=== PATIENT | female | born 1950 | race Caucasian/White ===

== ENCOUNTER 2019-01-27 11:58 | Observation (INO) | payer OTHER ==
--- OUTSIDE RECORDS SUMMARY | 2019-01-27 12:02 | XMS REPORT | Continuity of Care Document ---
:1950 Author Organization Interface Problems Problem Status Onset Classification Date Comments Source Date Reported LOCALIZATION-RE Active 08/06/20 [place] LATED (FOCAL) 18 [facility] (PARTIAL[facility] S [facility] G40.219 - Active 07/08/20 [facility] LOCAL-REL 18 [facility] EPI W CMPLX P 781.3 - LACK OF Active 11/01/19 [facility] COORDIN 15 [facility] Memory loss Resolved Problem 11/29/2018 [facility] Seizure Resolved Problem 11/29/2018 [facility] Seizure Active Problem 11/29/2018 [facility] precautions Neuro, [facility] Tremor Resolved Problem 11/29/2018 [facility] Medications Medication Details Route Status Patient Ordering Order Source Instructions Provider Date lamotrigine 200 200 mg=1 Active [facility] Oral Tablet tab, PO, 019 [facility] [Lamictal] BID, 0 Refill(s) propranolol 10 mg PO, BID, 0 Active [facility] oral tablet Refill(s) 019 [facility] ibandronic acid 150 mg=1 Active [facility] 150 MG Oral tab, PO, 019 [facility] Tablet [Boniva] qMonth, 0 Refill(s) Cholestyramine 4 gm, PO, Active [facility] Resin BID, 0 019 [facility] Refill(s) Allergies, Adverse Reactions, Alerts Substance Category Reaction Severity Reaction Status Date Comments Source type Reported Immunizations Immunization Date Given Site Status Last Updated Comments Source Results Order Results Value Reference Date Interpretation Comments Source Name Range Brain wo Brain wo EXAM: MRI BRAIN WITHOUT CONTRAST 09/21 - [facility] contrast contrast /2017 - [place] [facility] MRI DATE: 09/21/2018 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 TECHNIQUE: Multiplanar, multisequence MRI of the brain without contrast. High-resolution imaging was also obtained. IV contrast: None. FINDINGS: No restricted diffusion. No prior intracranial hemorrhage or mass effect. Again noted is T2 hyperintense signal and mild expansion in the region of the left amygdala and hippocampus. No new parenchymal signal abnormalities in the remainder of the brain parenchyma. Ventricles are normal in size. Basal cisterns are patent. The major intracranial flow voids are preserved. The orbits, paranasal sinuses and mastoids are unremarkable. 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 Differential considerations include low-grade neoplasm and cortical dysplasia. Vital Signs Vital Sign Value Date Comments Source BMI Calculated 17.58 11/26/2018 [facility] Height 170.18 cm 11/26/2018 [facility] Weight 50.909 11/26/2018 [facility] Temperature Oral (F) 97.9 F 11/26/2018 [facility] Heart Rate 80 11/26/2018 [facility] Systolic (mm Hg) 122 11/26/2018 [facility] Diastolic (mm Hg) 71 11/26/2018 [facility] Encounters Location Location Encounter Encounter Reason Attending ADM DC Status Source Details Type Number For Provider Date Date Visit [facility] Diag [id number] [facility] 11/09 11/10 [facility] [id number] CHIR[facility] 11/26 [facility] [id number] Chirag 11/26 11/27 [facility] Procedures Procedure Code Date Perfomer Comments Source Appendectomy [id number] [facility]
--- OUTSIDE RECORDS SUMMARY | 2019-01-27 12:02 | XMS REPORT | Summary of Care ---
:1950 Author Organization [facility] Address [address] [place] [address], [address] [place] [address]- Encounter [facility] Puneet(FIN) [id number] Date(s): 11/26/18 - 11/26/18 [facility] [address], [address] [place] [phone] Discharge Disposition: Home or Self Care Attending Physician: Chirag Pantoja MD Referring Physician: Antwon Archibald MD Vital Signs Most recent to oldest [Reference Range]: 1 Height 170.18 cm (11/26/18 12:30 PM) Temperature Oral [96.4-99.1 DegF] 97.9 DegF (11/26/18 12:30 PM) Blood Pressure [90-140/60-90 mmHg] 122/71 mmHg (11/26/18 12:30 PM) Peripheral Pulse Rate [60-100 bpm] 80 bpm (11/26/18 12:30 PM) Weight 50.909 kg (11/26/18 12:30 PM) Body Mass Index 17.58 m2 (11/26/18 12:30 PM) Problem List Condition Effective Dates Status Health Status Informant Memory loss(Confirmed) Resolved Seizure(Confirmed) Resolved Seizure precautions(Confirmed) Active Tremor(Confirmed) Resolved Allergies, Adverse Reactions, Alerts Substance Reaction Severity Status NKDA Active Medications Boniva 150 mg oral tablet 150 mg=1 tab, PO, qMonth, 0 Refill(s) Start Date: 11/26/18 Status: Orderedcholestyramine 4 gm, PO, BID, 0 Refill(s) Start Date: 11/26/18 Status: OrderedLaMICtal 200 mg oral tablet 200 mg=1 tab, PO, BID, 0 Refill(s) Start Date: 11/26/18 Status: Orderedpropranolol 10 mg oral tablet PO, BID, 0 Refill(s) Start Date: 11/26/18 Status: Ordered Results No data available for this section Immunizations No data available for this section Procedures Procedure Date Related Diagnosis Body Site Status Appendectomy Completed Social History Social History Type Response Smoking Status Never smoker; Exposure to Tobacco Smoke None; Cigarette Smoking Last 365 Days No; Reg Smoking Cessation Counseling No entered on: 11/26/18 Assessment and Plan No data available for this section
[2019-01-27 13:25] LABS: Absolute Lymphocytes (CBC) 1.2 K/uL (0.7-4.9); Absolute Monocytes 0.4 K/uL (0.1-1.3); Absolute Neutrophil 3.7 K/uL (1.8-8.0); Basophils % 0.6 % (0-1.3); Eosinophils % 3.1 % (0-4.4); Hematocrit 39.9 % (36.0-45.0); Lymphocytes % 22.4 % (15.3-44.8); MPV 7.5 fL (7.6-11.3); Monocytes % 6.8 % (3.3-12.3); RBC Red Blood Cell Count 4.79 M/uL (3.86-4.86)
--- NOTE | 2019-01-27 13:43 | RAD REPORT ---
EXAM DESCRIPTION: RAD - Chest Single View - 01/27/2019 1:34 pm CLINICAL HISTORY: CHEST PAIN Chest pain. COMPARISON: Chest Pa And Lat (2 Views) dated 05/26/2018; CHEST PA AND LAT 2 VIEW dated 02/23/2014; CHEST PA AND LAT 2 VIEW dated 11/01/2010 FINDINGS: Portable technique limits examination quality. Interstitial markings are prominent bilaterally which may indicate interstitial pulmonary edema or in terstitial pneumonitis. No focal infiltrate typical of pneumonia seen. The heart is mildly prominent size. Cholecystectomy clips.
[2019-01-27 13:44] LABS: Sodium Level 143 mmol/L (136-145)
[2019-01-27 13:45] LABS: BUN Blood Urea Nitrogen 15 mg/dL (7-18); Bicarbonate 31 mmol/L (21-32); Glucose Level 84 mg/dL (74-106); NT PRO-BNP 74 pg/mL (<125); Potassium 3.9 mmol/L (3.5-5.1); Troponin (Emerg Dept Use Only) < 0.02 ng/mL (0.0-0.045)
--- NOTE | 2019-01-27 15:10 | ER ---
Nurse's Notes [facility] Name: Paola Graham Age: 68 yrs Sex: Female : 1950 Arrival Date: 01/27/2019 Time: 12:01 Bed 7 Private MD: Diagnosis: Chest pain, unspecified;Dyspnea, unspecified Presentation: 01/27 12:08 Presenting complaint: Patient states: she has been having chest pressure for over a sv month and went to see Dr Francis and was placed on a Holter monitor with her power manager. Pt reports having increasing chest pressure and SOB and feeling like she cannot catch her breath. Transition of care: patient was not received from another setting of care. Onset of symptoms is unknown. Care prior to arrival: None. 12:08 Method Of Arrival: Wheelchair sv 12:08 Acuity: PERRY 3 sv 15:37 Risk Assessment: Do you want to hurt yourself or someone else? Patient reports no iw desire to harm self or others. Initial Sepsis Screen: Does the patient meet any 2 criteria? No. Patient's initial sepsis screen is negative. Does the patient have a suspected source of infection? No. Patient's initial sepsis screen is negative. Historical: - Allergies: 12:09 Phenobarbital (rash); sv - Home Meds: 15:15 Boniva 150 mg Oral tab 1 tab once moly [Active]; esomeprazole magnesium 40 mg Oral cpDR iw 1 cap once daily [Active]; Lamictal 200 mg Oral tab 1 tab once daily [Active]; propranolol 10 mg Oral tab 2 tabs twice a day [Active]; - PMHx: 12:09 Seizures; sv - PSHx: 12:09 Cholecystectomy; sv 12:10 Tubal ligation; sv - Immunization history:: Adult Immunizations up to date. - Social history:: Smoking status: Patient/guardian denies using tobacco. - Ebola Screening: : No symptoms or risks identified at this time. - Family history:: not pertinent. - Hospitalizations: : No recent hospitalization is reported. Screenin:23 Abuse screen: Denies threats or abuse. Denies injuries from another. Nutritional iw screening: No deficits noted. Tuberculosis screening: No symptoms or risk factors identified. Fall Risk IV access (20 points). Assessment: 12:50 General: Appears in no apparent distress. Behavior is calm, cooperative. Pain: iw Complains of pain in anterior aspect of left upper chest Pain does not radiate. Pain began one month ago, worse today. Neuro: Level of Consciousness is awake, alert, obeys commands, Moves all extremities. Cardiovascular: Reports chest pain, shortness of breath, Heart tones S1 S2 present Capillary refill < 3 seconds in bilateral fingers Patient's skin is warm and dry. Respiratory: Respiratory effort is even, unlabored, Respiratory pattern is regular, symmetrical, Breath sounds are clear bilaterally. GI: Abdomen is flat, non-distended, Bowel sounds present X 4 quads. Derm: Skin is intact, is healthy with good turgor, is fragile. 13:23 Reassessment: Patient appears in no apparent distress at this time. Patient and/or iw family updated on plan of care and expected duration. Pain level reassessed. Patient is alert, oriented x 3, equal unlabored respirations, skin warm/dry/pink. Vital Signs: 12:10 BP 116 / 73; Pulse 94; Resp 20; Temp 98.7; Pulse Ox 99% ; Weight 50.8 kg; Height 5 ft. sv 7 in. (170.18 cm); Pain 8/10; 14:03 BP 112 / 71; Pulse 83; Resp 16 S; Pulse Ox 98% on R/A; Pain 6/10; iw 12:10 Body Mass Index 17.54 (50.80 kg, 170.18 cm) sv Vitals: 14:03 Cardiac Rhythm Assessment Regular. iw ED Course: 12:01 Patient arrived in ED. tw3 12:09 Triage completed. sv 12:10 Arm band placed on. sv 12:13 EKG done, by central service technician. reviewed by Alvino Gillette MD. sm3 12:41 Alvino Gillette MD is Attending Physician. rn 13:00 Kala Tobar, CECILY is Primary Nurse. iw 13:23 Inserted saline lock: 22 gauge in right forearm, using aseptic technique. Blood iw collected. IV inserted by Lauri nurse receptionist student. 13:29 X-ray completed. Portable x-ray completed in exam room. Patient tolerated procedure sw well. 13:32 XRAY Chest (1 view) In Process Unspecified. EDMS 15:09 Leo Rivers MD is Hospitalizing Provider. rn 15:37 No provider procedures requiring assistance completed. Patient admitted, IV remains in iw place. Patient maintains SpO2 saturation greater than 95% on room air. 15:38 Patient has correct armband on for positive identification. groundwater monitoring technician on. Pulse iw ox on. NIBP on. Administered Medications: No medications were administered Outcome: 15:09 Decision to Hospitalize by Provider. rn 15:46 Admitted to Med/surg accompanied by nurse, room 202, with chart. sg 15:46 Condition: stable 15:46 Instructed on the need for admit, safety practices, Demonstrated understanding of instructions. 15:55 Patient left the ED. sg Signatures: Dispatcher [employer] EDMS Gina Lan, RN Osvaldo Forrester RN RN sg Williams, Irene, RN RN iw Nieto, Roman, MD MD rn Warren, Shannon sw Wade, Denise tw3 Serena Marshall 3
--- NOTE | 2019-01-27 15:10 | EDPHYS ---
Physician Documentation [facility] Name: Paola Graham Age: 68 yrs Sex: Female : 1950 Arrival Date: 01/27/2019 Time: 12:01 Bed 7 Private MD: ED Physician Alvino Gillette HPI: 01/27 13:39 This 68 yrs old Female presents to ER via Wheelchair with complaints of Chest rn Pain. 13:39 The patient or guardian reports chest pain that is located primarily in the substernal rn area. Onset: 1 month(s) ago. The pain does not radiate. Associated signs and symptoms: Pertinent positives: palpitations, shortness of breath, Pertinent negatives: cough, diaphoresis, dizziness, lower extremity swelling, lightheadedness. The chest pain is described as a heaviness. Duration: The patient or guardian reports multiple episodes, that are intermittent. Modifying factors: The symptoms are alleviated by nothing. the symptoms are aggravated by exertion. Severity of pain: At its worst the pain was mild in the emergency department the pain is unchanged. The patient has experienced similar episodes in the past. The patient has been recently seen by a physician:. Historical: - Allergies: 12:09 Phenobarbital (rash); sv - Home Meds: 15:15 Boniva 150 mg Oral tab 1 tab once moly [Active]; esomeprazole magnesium 40 mg Oral cpDR iw 1 cap once daily [Active]; Lamictal 200 mg Oral tab 1 tab once daily [Active]; propranolol 10 mg Oral tab 2 tabs twice a day [Active]; - PMHx: 12:09 Seizures; sv - PSHx: 12:09 Cholecystectomy; sv 12:10 Tubal ligation; sv - Immunization history:: Adult Immunizations up to date. - Social history:: Smoking status: Patient/guardian denies using tobacco. - Ebola Screening: : No symptoms or risks identified at this time. - Family history:: not pertinent. - Hospitalizations: : No recent hospitalization is reported. ROS: 13:39 Constitutional: Negative for fever, chills, and weight loss, Eyes: Negative for injury, rn pain, redness, and discharge, Cardiovascular: + chest pain and palpitation Respiratory: + sob, negative for cough Abdomen/GI: Negative for abdominal pain, nausea, vomiting, diarrhea, and constipation, MS/Extremity: Negative for injury and deformity, Skin: Negative for injury, rash, and discoloration, Neuro: + generalized weakness Exam: 13:39 Constitutional: This is a well developed, well nourished patient who is awake, alert, rn and in no acute distress. Head/Face: Normocephalic, atraumatic. Eyes: Pupils equal round and reactive to light, extra-ocular motions intact. Cardiovascular: Regular rate and rhythm, No pulse deficits. Respiratory: Clear and equal breath sounds bilaterally Abdomen/GI: soft, non-tender MS/ Extremity: Pulses equal, no cyanosis. Neurovascular intact. Full, normal range of motion. Equal circumference. Neuro: Awake and alert, GCS 15, oriented to person, place, time, and situation. Cranial nerves II-XII grossly intact. Motor strength 5/5 in all extremities. Sensory grossly intact. Cerebellar exam normal. Normal gait. Vital Signs: 12:10 BP 116 / 73; Pulse 94; Resp 20; Temp 98.7; Pulse Ox 99% ; Weight 50.8 kg; Height 5 ft. sv 7 in. (170.18 cm); Pain 8/10; 14:03 BP 112 / 71; Pulse 83; Resp 16 S; Pulse Ox 98% on R/A; Pain 6/10; iw 12:10 Body Mass Index 17.54 (50.80 kg, 170.18 cm) sv MDM: 12:41 Patient medically screened. rn 15:08 Differential diagnosis: acute myocardial infarction, acute pericarditis, anxiety, rn coronary artery disease chest wall pain, congestive heart failure costochondritis, gastroesophageal reflux disease (GERD), pericarditis, pleurisy, pneumonia, pneumothorax, stable angina. Data reviewed: vital signs, nurses notes, lab test result(s), EKG, radiologic studies, plain films, and as a result, I will admit patient. Counseling: I had a detailed discussion with the patient and/or guardian regarding: the historical points, exam findings, and any diagnostic results supporting the discharge/admit diagnosis, lab results, radiology results, the need for further work-up and treatment in the hospital. Response to treatment: the patient's symptoms have mildly improved after treatment, and as a result, I will admit patient. Admission orders: after a detailed discussion of the patient's condition and case, the admit orders are written by me. 04/11 12:53 Order name: Basic Metabolic Panel; Complete Time: 13:48 rn 01/27 12:53 Order name: CBC with Diff; Complete Time: 13:48 rn 01/27 12:11 Order name: EKG; Complete Time: 12:11 sv 01/27 12:53 Order name: NT PRO-BNP; Complete Time: 13:48 rn 01/27 12:53 Order name: Troponin (emerg Dept Use Only); Complete Time: 13:48 rn 01/27 12:53 Order name: XRAY Chest (1 view); Complete Time: 13:48 rn 01/27 12:11 Order name: EKG - Nurse/Tech; Complete Time: 12:11 sv 01/27 12:53 Order name: Cardiac monitoring; Complete Time: 13:15 rn 01/27 12:53 Order name: IV Saline Lock; Complete Time: 13:15 rn 01/27 12:53 Order name: Labs collected and sent; Complete Time: 13:15 rn 01/27 12:53 Order name: O2 Per Protocol; Complete Time: 13:15 rn 01/27 12:53 Order name: O2 Sat Monitoring; Complete Time: 13:32 rn Administered Medications: No medications were administered Disposition: 01/27/19 15:09 Hospitalization ordered by Leo Rivers for Observation. Preliminary diagnosis are Chest pain, unspecified, Dyspnea, unspecified. - Bed requested for Telemetry/MedSurg (observation). - Status is Observation. sg - Condition is Stable. - Problem is an ongoing problem. - Symptoms have improved. UTI on Admission? No Signatures: Dispatcher [employer] [facility] Gina Lan RN RN sv Woody, Diana, RN RN dw Gay, Steven, CECILY TONY sg Kala Tobar, RN CECILY iw Alvino Gillette MD MD managing attorney: (The following items were deleted from the chart) 15:22 15:09 Hospitalization Ordered by Leo Rivers MD for Observation. Preliminary diagnosis dw is Chest pain, unspecified; Dyspnea, unspecified. Bed requested for Telemetry/MedSurg (observation). Status is Observation. Condition is Stable. Problem is an ongoing problem. Symptoms have improved. UTI on Admission? No. rn 15:55 15:22 01/27/2019 15:09 Hospitalization Ordered by Leo Rivers MD for Observation. sg Preliminary diagnosis is Chest pain, unspecified; Dyspnea, unspecified. Bed requested for Telemetry/MedSurg (observation). Status is Observation. Condition is Stable. Problem is an ongoing problem. Symptoms have improved. UTI on Admission? No. dw
[2019-01-27] MEDS ORDERED: GLUCAGON 1 MG/VIAL IM PRN (16:09)
[2019-01-27] MEDS ORDERED: D50W 25 GM/50 ML SYRINGE IV PRN (16:09)
[2019-01-27] MEDS ORDERED: INSULIN -REGULAR HUMAN 50 UNIT/0.5 ML ML SQ SCH (16:30)
[2019-01-27] MEDS ORDERED: Levofloxacin500mg IV 500 MG/100 ML BAG IV SCH (17:00)
[2019-01-27] MEDS ORDERED: METHYLPREDNISOLONE 40 MG INJ IV SCH (17:00)
[2019-01-27] MEDS ORDERED: ALBUTEROL 2.5 MG/3 ML NEB SOL NEB SCH (17:00)
--- NOTE | 2019-01-27 17:15 | EKG ---
Test Date: 2019-01-27 Test Time: 12:09:58 Actuarial Consultant: JAIME MEASUREMENT RESULTS: Intervals: Rate: 92 OK: 274 QRSD: 88 QT: 352 QTc: 435 [place]: P: 74 OK: 274 QRS: 66 T: 69 INTERPRETIVE STATEMENTS: Sinus rhythm with 1st degree AV block Otherwise normal ECG Compared to ECG 03/21/2013 13:20:57 First degree AV block now present Electronically Signed On 01-27-19 17:13:25 CDT by Jerome Golden
--- NOTE | 2019-01-27 17:58 | P.HP ---
Certification for Inpatient Patient admitted to: Observation With expected LOS: <2 Midnights Practitioner: I am a practitioner with admitting privileges, knowledge of patient current condition, hospital course, and medical plan of care. Services: Services provided to patient in accordance with Admission requirements found in Title 42 Section 412.3 of the Code of Federal Regulations Patient History Date of Service: 01/27/19 Reason for admission: Chest pain on exertion History of Present Illness: This is a 68 yr old female with a PMH of seizures disorder admitted for chest pain on exertion. Per patient, she has been having exertional chest pain for the past 1 month. She experiences left sided chest pressure that is worse with any exertion. She did have a holter monitor with normal results. Denies any sob, nausea/vomiting, dizziness, [place] R[place], vision changes, speech changes, or syncopal /presyncopal episodes. She called her PCP office for an appointment but due to unavailability of PCP, she was then referred to the Emergency room. In the ED, her symptoms were unchanged. Her Vital signs were stable. Her EKG was without any acute abnormalities and troponin was negative x 1. Her labs were unremarkable and chest xray was without any acute abnormalities. At the time of my exam, she was AAOx3, in no acute distress and was hemodynamically stable. She was admitted for further evaluation. Allergies phenobarbital Allergy (Mild, Verified 01/27/19 18:27) Rash Home Medications: Cholestyramine (with Sugar) [Cholestyramine Packet] 4 gm PO DAILY 01/27/19 Lamotrigine [Lamotrigine ER] 200 mg PO BID 01/27/19 Propranolol HCl 20 mg PO DAILY 01/27/19 Propranolol HCl 30 mg PO BEDTIME 01/27/19 - Past Medical/Surgical History -: Seizure disorder - Family History Father -: Heart disease - Social History Smoking Status: Never smoker Alcohol use: No CD- Drugs: No Review of Systems 10-point ROS is otherwise unremarkable Physical Examination - Vital Signs Temperature: 98.7 F Blood Pressure: 112/71 Pulse: 83 Respirations: 16 - Physical Exam General: Alert, In no apparent distress, Oriented x3 HEENT: Atraumatic, PERRLA, Mucous membr. moist/pink, EOMI, Sclerae nonicteric Neck: Supple, 2+ carotid pulse no bruit, No LAD, Without JVD or thyroid abnormality Respiratory: Clear to auscultation bilaterally, Normal air movement Cardiovascular: Regular rate/rhythm, Normal S1 S2 Gastrointestinal: Normal bowel sounds, No tenderness Musculoskeletal: No tenderness Integumentary: No rashes Neurological: Normal gait, Normal speech, Normal strength at 5/5 x4 extr, Normal tone, Normal affect Lymphatics: No axilla or inguinal lymphadenopathy - Studies Laboratory Data (last 24 hrs) 01/27/19 13:10: WBC 5.5, Hgb 12.9, Hct 39.9, Plt Count 265 01/27/19 13:10: Sodium 143, Potassium 3.9, BUN 15, Creatinine 0.74, Glucose 84 Assessment and Plan - Problems (Diagnosis) (1) Exertional angina Current Visit: Yes Status: Acute (2) Seizure disorder Current Visit: No Status: Chronic - Plan Admit patient to the floor with tele Cardiology consult Trend troponin Chest pain guidelines ECHO ordered Stress test per cardiology Discharge Plan: Home - Advance Directives Does patient have a Living Will: No Does patient have a Durable POA for Healthcare: No
[2019-01-27 18:18] VITALS: BMI 16.1
--- NOTE | 2019-01-27 23:03 | CON ---
History Of Present Illness: A 68-year-old woman with chief complaint of chest pressure. The patient has been having chest pressure for a month, also feeling her heart beating fast. She has seen Dr. Denise leblanc, and she finally stated she had been having chest pressure, he placed her in the hospital. Since being here, cardiac enzymes and EKGs are normal. The patient has not had heart disease before. She has a history of a seizure disorder. She is multiparous. Outpatient Medications: Uncertain at this point and were listed in the chart of her actual medicatio ns. Allergies: SHE IS ALLERGIC TO PHENOBARBITAL. Medications: She has taken Boniva, esomeprazole, Lamictal, propranolol. Physical Examination: General: She is alert, oriented, pleasant, appears to be her stated age, 5 feet 7 inches, weighs 112 pounds. Marked kyphoscoliosis. Lungs: Clear. Cardiac Exam: Normal. Abdomen: Soft. Extremities: Normal. Plan: I would recommend we do an echocardiogram and a pharmacologic nuclear stress test. If those a re normal, we can be reasonably certain that she is stable for outpatient care. ESTEFANY Voice ID: [id number] Report ID: [id number]
[2019-01-28] MEDS: CHOLESTYRAMINE/ASP 4 GM/PKT PO SCH (08:00)
[2019-01-28] MEDS ORDERED: REGADENOSON 0.4 MG/5 ML SYR IV ONE (08:16)
[2019-01-28 08:36] LABS: Absolute Lymphocytes (CBC) 1.4 K/uL (0.7-4.9); Absolute Monocytes 0.5 K/uL (0.1-1.3); Absolute Neutrophil 2.8 K/uL (1.8-8.0); Basophils % 0.8 % (0-1.3); Eosinophils % 4.5 % (0-4.4); Hematocrit 41.4 % (36.0-45.0); MPV 7.4 fL (7.6-11.3); Monocytes % 9.8 % (3.3-12.3); RBC Red Blood Cell Count 4.96 M/uL (3.86-4.86)
[2019-01-28] MEDS: LAMOTRIGINE 200 MG PO SCH ×2 (08:38→20:59)
[2019-01-28 08:54] LABS: ALT/SGPT 21 U/L (12-78); AST/SGOT 12 U/L (15-37); Albumin 3.7 g/dL (3.4-5.0); Alkaline Phosphatase 72 U/L (45-117); BUN Blood Urea Nitrogen 14 mg/dL (7-18); Bicarbonate 33 mmol/L (21-32); Bilirubin Total 0.3 mg/dL (0.2-1.0); Glucose Level 91 mg/dL (74-106); HDL Cholesterol 85 mg/dL (40-60); LDL Cholesterol, Calculated 121 (<130); Magnesium 2.2 mg/dL (1.8-2.4); Phosphorus 3.1 mg/dL (2.5-4.9); Potassium 4.2 mmol/L (3.5-5.1); Protein, Total 7.3 g/dL (6.4-8.2); Sodium Level 144 mmol/L (136-145); Troponin I < 0.02 ng/mL (0.0-0.045)
--- NOTE | 2019-01-28 11:08 | RAD REPORT ---
EXAM DESCRIPTION: [place] - Rest Stress Cardiac Imaging - 01/28/2019 11:00 am CLINICAL HISTORY: Chest pain COMPARISON: None. TECHNIQUE: The patient was administered approximately 10 mCi of Tc 99m Sestamibi prior to resting SP ECT imaging of the heart. The patient was then administered approximately 30 mCi of Tc 99m Sestamibi following exercise or pharmacologic stress. Multiplanar SPECT images were reviewed. FINDINGS: The end diastolic volume is 43 ml, the end systolic volume is 5 ml, and the ejection fract ion is 90 %. Physiologic distribution of the radiopharmaceutical through the myocardium is noted. No stress induce d ischemic defect is seen to suggest stress induced ischemia. No fixed defect is seen to suggest hibe rnating myocardium or scarred myocardium. IMPRESSION: No stress induced ischemia or other suspicious findings.
--- NOTE | 2019-01-28 11:15 | RAD REPORT ---
EXAM DESCRIPTION: Bre Aragon And Anna (2 Views)01/28/2019 10:54 am CLINICAL HISTORY: Chest pain COMPARISON: January 2019 FINDINGS: The lungs are moderately to markedly hyperaerated. Mild reticulonodular opacities are present within the right lung base. the heart is normal size IMPRESSION: COPD Mild reticulonodular opacities within the right lung base may indicate an atypical infection
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
[2019-01-28] MEDS ORDERED: AZITHROMYCIN 250 MG TAB PO ONE (17:14)
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
[2019-01-29] MEDS: CHOLESTYRAMINE/ASP 4 GM/PKT PO SCH (08:41)
[2019-01-29] MEDS: LAMOTRIGINE 200 MG PO SCH (08:41)
[2019-01-29] MEDS ORDERED: AZITHROMYCIN 250 MG TAB PO SCH (09:00)
[2019-01-29 12:20] VITALS: BP 104/59; TEMP 98.9
[2019-01-29 13:50] VITALS: O2SAT 98
--- NOTE | 2019-01-31 08:16 | ECHO ---
HEIGHT: 5 ft 7 in WEIGHT: 103 lb 0 oz DATE OF STUDY: 01/28/[address]: Jerome Golden MD 2-DIMENSIONAL: YES M.MODE: YES DOPPLER: YES COLOR FLOW: YES TDS: YES PORTABLE: NO DEFINITY: NO BUBBLE STUDY: NO DIAGNOSIS: CHEST PAIN CARDIAC HISTORY: CATHERIZATION: NO SURGERY: NO PROSTHETIC VALVE: NO PACEMAKER: NO MEASUREMENTS (cm) DIASTOLIC (NORMALS) SYSTOLIC (NORMALS) IVSd 1.1 (0.6-1.2) LA Diam (1.9-4.0) LVEF 78% LVIDd 2.9 (3.5-5.7) LVIDs 1.6 (2.0-3.5) %FS 45% LVPWd 1.2 (0.6-1.2) Ao Diam 2.5 (2.0-3.7) 2 DIMENSIONAL ASSESSMENT: RIGHT ATRIUM: NORMAL LEFT ATRIUM: NORMAL RIGHT VENTRICLE: NORMAL LEFT VENTRICLE: NORMAL TRICUSPID VALVE: NORMAL MITRAL VALVE: NORMAL PULMONIC VALVE: NORMAL AORTIC VALVE: NORMAL PERICARDIAL EFFUSION: NONE AORTIC ROOT: NORMAL LEFT VENTRICULAR WALL MOTION: NORMAL DOPPLER/COLOR FLOW: NORMAL COMMENTS: NORMAL 2D ECHOCARDIOGRAM WITH DOPPLER. TECHNICALLY DIFFICULT STUDY. NO EFFUSION. TECHNOLOGIST: Dennis MARTÍNEZ
--- NOTE | 2019-01-31 08:22 | TREADPHA ---
DX: CHEST PAIN Date of Study: 01/28/2019 Ht: 5 7 Wt: 103 lb 0 oz Consulting Physician: SUNSHINE MEDICATIONS: HISTORY: 68 YEAR OLD FEMALE WITH COMPLAINTS OF CHEST PAIN. MEDICAL HISTORY OF SEIZURES. PHYSICIAL EXAMINATION: RESTING B.P.: 117/76 RESTING H.R.: 90 RESTING EKG: NORMAL PROTOCOL: LEXISCAN EXERCISE TIME: 3:30 B.P. AT PEAK STRESS: 132/74 IMPRESSION: LEXISCAN INJECTED. CARDIOLITE INJECTED PER PROTOCOL. SEE NUCLEAR MEDICINE REPORT. NO SUPRAVENTRICULAR TACHYCARDIA. NO VENTRICULAR TACHYCARDIA. NO PREMATURE VENTRICULAR COMPLEXES. DENIED CHEST PAIN JUST HEAVINESS.
== END 2019-01-29 13:50 | disposition home or self-care (01) ==
LOC: ER 11:58 → ERHOLD 14:56 → 2ND 15:48
PROVIDERS: ADMIT Family Medicine; ATTEND Family Medicine
DX: I20.8 Other forms of angina pectoris (principal); G40.909 Epilepsy, unspecified, not intractable, without status epilepticus; J18.9 Pneumonia, unspecified organism; Z88.8 Allergy status to other drugs, medicaments and biological substances
CPT/HCPCS: 93005; 93017; 93306; 85025 ×2; 80048; 36415; 83735; 84100; 80061; 84484 ×3; 80053; 83880; 71045; 71046; 94760 ×4; 78452; 99285; J2785; A9500; G0378 ×2

== ENCOUNTER 2020-05-20 18:16 | Observation (INO) | payer OTHER ==
--- OUTSIDE RECORDS SUMMARY | 2020-05-20 18:18 | XMS REPORT | Continuity of Care Document ---
:1950 Author Organization [facility] [employer] Care Team Providers Name Role Phone [facility] [place] Information [place] Unavailable Un available Problems Problem Status Onset Classification Date Comments Sourc e Date Reported Localization-re 09/25/20 04/11/2019 [place] late (focal) 18 Medica l (partial) Center, symptomatic [facility] epilepsy and [place] epileptic syndromes with complex partial seizures, intractable, without status epilepticus LOCALIZATION-RE Active 08/06/20 [place] LATED (FOCAL) 18 Medica l (PARTIAL) S Center G40.219 - Active 07/08/20 [facility] LOCAL-REL 18 [place] SYMPTC EPI W CMPLX P 781.3 - LACK OF Active 11/01/19 [place] PID COORDIN 15 [place] Partial 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 [place] Seizure Resolved Problem 06/16/2019 [place] (finding) Neuro,[facility] [place] Seizure Active Problem 06/16/2019 [place] precautions Neuro, (procedure) [facility], SUSANA Vazquez [place] Tremor Resolved Problem 06/16/2019 [place] (finding) Neuro,[facility], [place] Medications Medication Details Route Status Patient Ordering Order Source Instructions Provider Date lamotrigine 200 200 mg = Active [facility] MG Oral Tablet 1 tab, 019 Neuro [Lamictal] PO, BID, 0 Refill(s) propranolol 10 PO, BID, Active Mischer mg oral tablet 0 019 Neuro Refill(s) ibandronic acid 150 mg = Active Mischer 150 MG Oral 1 tab, 019 Neuro Tablet [Boniva] PO, qMonth, 0 Refill(s) Cholestyramine 4 gm, PO, Active Mischer Resin BID, 0 019 Neuro Refill(s) LaMICtal XR 50 ; Start Active [facility] MG Oral Tablet Date: 013 Physician s Extended Release 24 Hour 3; End Date: 0 (Active) LevETIRAcetam ER ; Start Active [facility] 500 MG Oral Date: 013 Physicians Tablet Extended Release 24 Hour 3; End Date: 0 (Active) Propranolol HCl ; Start Active [facility] ER 60 MG Oral Date: 012 Physicians Capsule Extended Release 24 Hour 2; End Date: 0 (Active) LaMICtal XR 50 ; Start Active [facility] MG Oral Tablet Date: 012 Physician s Extended Release 24 Hour 2; End Date: 0 (Active) LaMICtal XR 100 ; Start Active [facility] MG Oral Tablet Date: 012 Physician s Extended Release 24 Hour 2; End Date: 0 (Active) Propranolol HCl ; Start Active [facility] 10 MG Oral Date: 008 Physicians Tablet 8; End Date: 0 (Active) LaMICtal XR 200 ; Start Inactive [facility] MG Oral Tablet Date: 900 Physician s Extended Release 24 Hour 0; End Date: 0 (Active) Evista 60 MG (Active) Active [facility] Oral Tablet Physicians NexIUM 40 MG (Active) Active [facility] Oral Capsule Physicians Delayed Release Allergies, Adverse Reactions, Alerts Substance Category Reaction Severity Reaction Status Date Comments S ource type Reported PHENobarbital drug drug Active [facility] TABS allergy allergy Physicia ns No Known Assertion Drug Misch er Medication allergy Neuro Allergies Immunizations No Data Provided for This Section Results No Data Provided for This Section Pathology Reports No Data Provided for This Section Diagnostic Reports Report Value Date Source Brain wo contrast MRI EXAM: MRI BRAIN WITHOUT CONTRAST 8 SUSANA Kee DATE: 09/21/2018 3:29 PM TELEPHONE LINEMAN INDICATION: G40.219 Locali zation-related (focal) (partial) symptomatic epilepsy and epileptic syndromes with complex partial seizures, intractable, without status epilepticus - G40.219 Localization- related (focal) (partial) sy mptomatic epilepsy and epileptic syndromes with complex partial seizures, intractable, without status epilepticus COMPARISON: MRI brain without contrast 5. TECHNIQUE: Multiplanar, mult isequence MRI of the brain without contrast. High- resolution imaging was also obtained. IV contrast: None. [...] unremarkable. 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 Differential considerations include low-grade neoplasm and cortical dysplasia. Consultation Notes No Data Provided for This Section Discharge Summaries No Data Provided for This Section History and Physicals No Data Provided for This Section Vital Signs Vital Sign Value Date Comments Source BMI Calculated 17.58 11/26/2018 [facility] Height 170.18 cm 11/26/2018 [facility] Weight 50.909 11/26/2018 [facility] Temperature Oral (F) 97.9 F 11/26/2018 [facility] Heart Rate 80 11/26/2018 [facility] Systolic (mm Hg) 122 11/26/2018 [facility] Helder ro Diastolic (mm Hg) 71 11/26/2018 [facility] u[facility] Respitory Rate 16 08/15/2018 [facility] Temperature Oral (F) 97.2 F 08/15/2018 [facility] Heart Rate 76 08/15/2018 [facility] Systolic (mm Hg) 105 08/15/2018 [facility] Diastolic (mm Hg) 62 08/15/2018 [facility] edical Center Systolic (mm Hg) 100 08/15/2018 [facility] Center Diastolic (mm Hg) 55 08/15/2018 [facility] Temperature Oral (F) 97.9 F 08/15/2018 [facility] Heart Rate 77 08/15/2018 [facility] Diastolic (mm Hg) 71 08/14/2018 [facility] Systolic (mm Hg) 111 08/14/2018 [facility] dical [place] Heart Rate 69 08/14/2018 [facility] Temperature Oral (F) 97 F 08/14/2018 [facility] Respitory Rate 14 08/14/2018 [facility] BMI Calculated 16.79 08/14/2018 [facility] Weight 48.636 08/14/2018 [facility] Height 170.18 cm 08/14/2018 [facility] Encounters Location Location Encounter Encounter Reason Attending ADM NC Stat us Source Details Type Number For Provider Date Date Visit AUDIT [id number] 08/05 /2011 Physicia ns AUDIT [id number] 08/05 /2011 Physicia ns AUDIT [id number] 08/13 /2011 Physicia ns AUDIT [id number] 09/07 /2011 Physicia ns EES, [id number] 11/18 09/08 [place] Provider: PhysicTRINITY [place] MY, Status: Pen, Time: 10:00 AM AUDIT [id number] 06/16 /2012 Physicyolette farnsworth EMD, [id number] 09/22 06/17 [place] Provider: SUNNI Sawant , Status: Pen, Time: 11:00 AM AUDIT [id number] 10/02 /2012 Physicyolette farnsworth EMD, [id number] 03/16 10/03 [place] Provider: SUNNI Sawant , Status: Pen, Time: 2:[address] [facility] Outpt Diag [id number] [place] 11/09 11/10 [facility] Outpt Diag [id number] [place] 08/06 08/06 [facility] [place] [facility] [id number] [place] 08/14 08/15 M Jelani Vazquez Outpatient [facility] Outpt Diag [id number] [place] 09/21 09/22 [facility] [place] [facility] Phone [phone] 11/01 11/03 [facility] her Neuroscienc Message Neur o e [place] MNA Phone [phone] 11/01 11/03 Mis her Neurosurger Message Neur o y [facility] Outpatient [id number] [place] 11/26 [facility] [id number] [place] 11/26 11/27 [facility] Neurosurger [place] Neuro y [facility] Procedures Procedure Code Date Perfomer Comments Source Appendectomy [id number] [facility], SUSANA Barrientos, SUSANA Kee Assessment and Plan No Data Provided for This Section Plan of Care No Data Provided for This Section Social History Social History Date Source Social History TypeResponse 11/26/2018 SUSANA espinal Smoking Status Never smoker; Exposure to Tobacco Smoke None; Cigarette Smoking Last 365 Days No; Reg Smoking Cessation Counseling No entered on: 11/26/18 Social History TypeResponse 11/26/2018 [facility] Smoking Status Never smoker; Exposure to Tobacco Smoke None; Cigarette Smoking Last 365 Days No; Reg Smoking Cessation Counseling No entered on: 11/26/18 Social History TypeResponse 11/26/2018 SUSANA lantigua Smoking Status Never smoker; Exposure to Tobacco Smoke None; Cigarette Smoking Last 365 Days No; Reg Smoking Cessation Counseling No entered on: 11/26/18 Social History TypeResponse 11/26/2018 [facility] Smoking Status Never smoker; Exposure to Tobacco Smoke None; Cigarette Smoking Last 365 Days No; Reg Smoking Cessation Counseling No entered on: 11/26/18 Never A Smoker (Active) 10/03/2013 [facility] Physic ians No History of Current Smoker (Denied) No History of Alcohol Use (Denied) No History of Drug Use (Denied) Never A Smoker (Active) Never A Smoker (Active) Never A Smoker (Active) Never A Smoker (Active) Family History Value Date Source Maternal history of Drug-induced 10/03/2013 [facility] Phys icians Osteoporosis (Active) Paternal history of Aortic Aneurysm (Active) Family history of Heart Disease (V17.49); (Active) Paternal history of Aortic 06/17/2013 [place] Phys[facility] Aneurysm (Active) Maternal history of Drug-induced Osteoporosis (Active) Family history of Heart Disease (V17.49); (Active) Maternal history of Drug-Induced 09/08/2012 [facility] Osteoporosis (Active) Paternal history of Aortic Aneurysm (Active) Family history of Heart Disease (V17.49); (Active) Maternal history of Drug-Induced 08/13/2012 [facility] Osteoporosis (Active) Paternal history of Aortic Aneurysm (Active) Family history of Heart Disease (V17.49); (Active) Maternal history of Drug-Induced 08/05/2012 [facility] Osteoporosis (Active) Paternal history of Aortic Aneurysm (Active) Family history of Heart Disease (V17.49); (Active) Maternal history of Drug-Induced 08/05/2012 [facility] Osteoporosis (Active) Paternal history of Aortic Aneurysm (Active) Family history of Heart Disease (V17.49); (Active) Advance Directives Order Name Results Value Date Source Advance Directives Advance Directives No Advance 10/03/2013 [place] [facility] Directives available. Advance Directives Advance Directives No Advance 06/17/2013 [place] [facility] Directives available. Advance Directives Advance Directives No Advance 09/08/2012 [place] [facility] Directives available. Advance Directives Advance Directives No Advance 08/13/2012 [place] [facility] Directives available. Advance Directives Advance Directives No Advance 08/05/2012 [place] [facility] Directives available. Advance Directives Advance Directives No Advance 08/05/2012 [place] [facility] Directives available. Functional Status No Data Provided for This Section
[2020-05-20] MEDS ORDERED: NA CHLORIDE 0.9% 500 ML ONE (18:58)
[2020-05-20] MEDS ORDERED: NITROGLYCERIN 0.4 MG/TAB SL ONE (18:58)
[2020-05-20] MEDS ORDERED: ASPIRIN 81 MG CHEWABLE TABLET ONE (18:58)
[2020-05-20 19:09] LABS: Absolute Lymphocytes (CBC) 1.4 K/uL (0.7-4.9); Basophils % 0.6 % (0-1.3); Hematocrit 39.9 % (36.0-45.0); Lymphocytes % 21.8 % (15.3-44.8); MPV 7.5 fL (7.6-11.3); RBC Red Blood Cell Count 4.81 M/uL (3.86-4.86)
[2020-05-20 19:26] LABS: ALT/SGPT 18 U/L (12-78); AST/SGOT 14 U/L (15-37); Albumin 3.7 g/dL (3.4-5.0); Alkaline Phosphatase 68 U/L (45-117); BUN Blood Urea Nitrogen 12 mg/dL (7-18); Bicarbonate 31 mmol/L (21-32); Bilirubin Direct < 0.1 mg/dL (0-0.2); Bilirubin Total 0.3 mg/dL (0.2-1.0); Glucose Level 101 mg/dL (74-106); Magnesium 2.1 mg/dL (1.8-2.4); NT PRO-BNP 41 pg/mL (<125); Potassium 3.9 mmol/L (3.5-5.1); Protein, Total 7.5 g/dL (6.4-8.2); Sodium Level 140 mmol/L (136-145); Troponin (Emerg Dept Use Only) < 0.02 ng/mL (0.0-0.045)
--- NOTE | 2020-05-20 20:07 | EDPHYS ---
Physician Documentation [facility] Name: Paola Graham Age: 69 yrs Sex: Female : 1950 Arrival Date: 05/20/2020 Time: 18:18 Bed 4 Private MD: ED Physician Enrique Shaikh HPI: 05/20 18:45 This 69 yrs old Female presents to ER via Ambulatory with complaints of Chest cp Pain. 18:45 The patient or guardian reports chest pain that is located primarily in the anterior cp chest wall, left. 18:45 Onset: yesterday, and became worse today. The pain radiates to the left arm, left back. cp Associated signs and symptoms: Pertinent positives: slight cough, Pertinent negatives: abdominal pain, diaphoresis, headache, lower extremity pain, lower extremity swelling, palpitations, shortness of breath, syncope. 18:45 The chest pain is described as tightness. cp 18:45 Duration: The patient or guardian reports a single episode, that is still ongoing, and cp worsening. Modifying factors: the symptoms are aggravated by activity. Severity of pain: in the emergency department the pain is a 8 / 10. Historical: - Allergies: 18:23 Phenobarbital (rash); ll1 - PMHx: 18:23 Seizures; ll1 - PSHx: 18:23 Cholecystectomy; Tubal ligation; ll1 - Immunization history:: Flu vaccine is up to date. - Social history:: Smoking status: Patient denies any tobacco usage or history of. Patient/guardian denies using alcohol, street drugs, tobacco products. ROS: 18:50 Constitutional: Negative for body aches, chills, fever. cp 18:50 Eyes: Negative for injury, pain, redness, and discharge. cp 18:50 ENT: Negative for drainage from ear(s), ear pain, sore throat, difficulty swallowing, difficulty handling secretions. 18:50 Cardiovascular: Positive for chest pain, of the anterior aspect of left upper chest, Negative for edema, palpitations. 18:50 Respiratory: Positive for cough, Negative for shortness of breath, wheezing. 18:50 Abdomen/GI: Negative for abdominal pain, nausea, vomiting, and diarrhea. 18:50 Back: Positive for radiated pain, of the left scapular area and left subscapular area. 18:50 MS/extremity: Positive for pain, of the left arm. 18:50 Neuro: Negative for altered mental status, headache, weakness. 18:50 All other systems are negative. Exam: 18:55 ECG was reviewed by the Attending Physician. cp 18:57 Constitutional: The patient appears in no acute distress, alert, awake, cp non-diaphoretic, non-toxic, well developed, well nourished. 18:57 Head/Face: Normocephalic, atraumatic. cp 19:00 Eyes: Periorbital structures: appear normal, Conjunctiva: normal, no exudate, no cp injection, Sclera: no appreciated abnormality, Lids and lashes: appear normal, bilaterally. 19:00 ENT: External ear(s): are unremarkable, Nose: is normal, Mouth: Lips: moist, Oral cp mucosa: moist, Posterior pharynx: Airway: no evidence of obstruction, patent. 19:00 Neck: ROM/movement: is normal, is supple, without pain, no range of motions limitations, no nuchal rigidity. 19:00 Chest/axilla: Inspection: normal, Palpation: is normal, no crepitus, no tenderness. 19:00 Cardiovascular: Rate: normal, Rhythm: regular, Pulses: Pulses are 2+ in right radial artery and left radial artery. Edema: is not appreciated, JVD: is not appreciated. 19:00 Respiratory: the patient does not display signs of respiratory distress, Respirations: normal, no use of accessory muscles, no retractions, no splinting, no tachypnea, labored breathing, is not present, Breath sounds: are clear throughout, no decreased breath sounds, no stridor, no wheezing. 19:00 Abdomen/GI: Inspection: abdomen appears normal, Palpation: abdomen is soft and non-tender, in all quadrants. 19:00 Back: pain, is absent, ROM is normal. 19:00 Skin: no rash present. 19:00 Neuro: Orientation: to person, place \T\ time. Mentation: is normal, Motor: moves all fours, strength is normal. Vital Signs: 18:21 BP 133 / 81; Pulse 77; Resp 17; Temp 98.2; Pulse Ox 97% on R/A; Weight 49.9 kg; Height ll1 5 ft. 6 in. (167.64 cm); Pain 7/10; 20:00 BP 109 / 69; Pulse 84; Resp 18; Pulse Ox 96% on R/A; wh 22:00 BP 135 / 88; Pulse 70; Resp 18; Pulse Ox 98% on R/A; wh 18:21 Body Mass Index 17.75 (49.90 kg, 167.64 cm) ll1 MDM: 18:42 Patient medically screened. cp 20:06 Data reviewed: vital signs, nurses notes, lab test result(s), EKG, radiologic studies, cp plain films. Physician consultation: Bassam Francis MD was called at 20:06, was contacted at 20:06, regarding admission, to the telemetry unit. patient's condition, would like consultation with Dr. Chicas. 05/20 18:44 Order name: Basic Metabolic Panel; Complete Time: 19:34 cp 05/20 18:44 Order name: CBC with Diff; Complete Time: 19:21 cp 05/20 19:21 Interpretation: Normal except: MCH 26.3; MCHC 31.7; MPV 7.5. cp 05/20 18:44 Order name: LFT's; Complete Time: 19:34 cp 05/20 18:44 Order name: Magnesium; Complete Time: 19:34 cp 05/20 18:44 Order name: NT PRO-BNP; Complete Time: 19:34 cp 05/20 18:44 Order name: PT-INR; Complete Time: 20:35 cp 05/20 18:44 Order name: Troponin (emerg Dept Use Only); Complete Time: 19:34 cp 05/20 19:34 Interpretation: Within normal limits: TROPED < 0.02. cp 05/20 19:36 Order name: LAB Add On cp 05/20 19:42 Order name: D-Dimer; Complete Time: 20:35 EDMS 05/20 20:35 Interpretation: Abnormal: D-DIMER 521. cp 05/20 21:46 Order name: Basic Metabolic Panel EDMS 05/20 21:46 Order name: Basic Metabolic Panel EDMS 05/20 21:46 Order name: CBC with Automated Diff EDMS 05/20 21:46 Order name: CBC with Automated Diff EDMS 05/20 18:44 Order name: XRAY Chest (1 view); Complete Time: 21:38 cp 05/20 18:44 Order name: EKG; Complete Time: 18:45 cp 05/20 20:36 Order name: CT Chest For PE Angio; Complete Time: 21:38 cp 05/20 21:44 Order name: CONS Physician Consult EDAL 05/20 21:46 Order name: Regular EDAL 05/20 21:46 Order name: EKG Electrocardiogram EDAL 05/20 21:46 Order name: EKG Electrocardiogram EDAL 05/20 21:46 Order name: Troponin I EDAL 05/20 21:46 Order name: Troponin I EDAL 05/20 21:46 Order name: Troponin I EDAL 05/20 21:54 Order name: COVID-19 bb 05/20 18:44 Order name: Cardiac monitoring; Complete Time: 18:45 cp 05/20 18:44 Order name: EKG - Nurse/Tech; Complete Time: 18:45 cp 05/20 18:44 Order name: IV Saline Lock; Complete Time: 19:03 cp 05/20 18:44 Order name: Labs collected and sent; Complete Time: 19:03 cp 05/20 18:44 Order name: O2 Per Protocol; Complete Time: 18:45 cp 05/20 18:44 Order name: O2 Sat Monitoring; Complete Time: 18:45 cp 05/20 21:46 Order name: EKG Electrocardiogram EDAL 05/20 21:46 Order name: EKG Electrocardiogram EDAL EC:55 Rate is 79 beats/min. Rhythm is regular. DE interval is prolonged at 216 msec. QRS cp interval is normal. QT interval is normal. T waves are Inverted in leads aVL, aVR. Interpreted by me. Reviewed by me. Administered Medications: 18:51 Drug: Nitroglycerin 0.4 mg {Note: pain 7/10.} Route: Sublingual; 10 : Follow up: Response: No adverse reaction 19:01 Drug: NS 0.9% 500 ml Route: IV; Rate: 500 ml/hr; Site: right forearm; jr10 22:00 Follow up: Response: No adverse reaction; IV Status: Completed infusion 19:02 Drug: Aspirin Chewable Tablet 324 mg Route: PO; jr10 22: Follow up: Response: No adverse reaction 20:19 Drug: Lovenox 40 mg Route: Sub-Q; Site: abdomen; 22:00 Follow up: Response: No adverse reaction 21:59 Drug: Zithromax 500 mg Route: IVPB; Infused Over: 1 hrs; Site: left antecubital; 23:49 Follow up: Response: No adverse reaction; IV Status: Completed infusion Disposition: 05/21 04:28 Co-signature as Attending Physician, Enrique Shaikh MD I agree with the assessment and tw4 plan of care. Disposition: 05/20/20 20:07 Hospitalization ordered by Bassam Francis for Observation. Preliminary diagnosis are Angina pectoris, Pneumonia due to other specified infectious organisms. - Bed requested for Telemetry/MedSurg (Inpatient). - Status is Observation. rv - Condition is Stable. - Problem is new. - Symptoms have improved. Signatures: Dispatcher [employer] EDAL Liliya Moreno RN Ry Muñoz PA PA cp Cheryl Tavarez Enrique Shaikh MD MD tw4 Dyllan Iqbal RN RN Rocío Wallace RN RN ll1 Gia Hdz, RN RN jr10 Corrections: (The following items were deleted from the chart) 05/20 18:46 18:46 This 69 yrs old Female presents to ER via Ambulatory with complaints of cp Chest Pain. cp 18:58 18:56 Constitutional: Negative for body aches, chills, fever, cp cp 20:19 19:42 D-DIMER+COAG.LAB.BRZ ordered. EDAL EDMS 20:20 20:07 Hospitalization Ordered by Bassam Francis MD for Observation. Preliminary diagnosis mw is Angina pectoris. Bed requested for Telemetry/MedSurg (observation). Status is Observation. Condition is Stable. Problem is new. Symptoms have improved. cp 21:39 20:20 05/20/2020 20:07 Hospitalization Ordered by Bassam Francis MD for Observation. cp Preliminary diagnosis is Angina pectoris. Bed requested for Telemetry/MedSurg (observation). Status is Observation. Condition is Stable. Problem is new. Symptoms have improved. mw 21:52 21:39 05/20/2020 20:07 Hospitalization Ordered by Bassam Francis MD for Observation. mw Preliminary diagnosis is Angina pectoris; Pneumonia due to other specified infectious organisms. Bed requested for Telemetry/MedSurg (observation). Status is Observation. Condition is Stable. Problem is new. Symptoms have improved. cp 05/21 00:53 05/20 21:52 05/20/2020 20:07 Hospitalization Ordered by Bassam Francis MD for Observation. mw Preliminary diagnosis is Angina pectoris; Pneumonia due to other specified infectious organisms. Bed requested for [facility] ER HOLD. Status is Observation. Condition is Stable. Problem is new. Symptoms have improved. mw 05/21 02:12 00:53 05/20/2020 20:07 Hospitalization Ordered by Bassam Francis MD for Observation. rv Preliminary diagnosis is Angina pectoris; Pneumonia due to other specified infectious organisms. Bed requested for Telemetry/MedSurg (Inpatient). Status is Observation. Condition is Stable. Problem is new. Symptoms have improved. alayna
--- NOTE | 2020-05-20 20:07 | ER ---
Nurse's Notes [facility] Name: Paola Graham Age: 69 yrs Sex: Female : 1950 Arrival Date: 05/20/2020 Time: 18:18 Bed 4 Private MD: Diagnosis: Angina pectoris;Pneumonia due to other specified infectious organisms Presentation: 05/20 18:21 Chief complaint: Patient states: Not feeling well for a couple days. Slight cough. ll1 Dizziness and fatigue yesterday. Chest tightness that radiates into back and left arm constant today. No fever. No N/V/D. Coronavirus screen: Client denies travel out of the [place] in the last 14 days. cough unrelated to allergies, fatigue. Coronavirus screen: Client presents with at least one sign or symptom that may indicate coronavirus-19. Standard/surgical mask placed on the client. Ebola Screen: Patient denies travel to an Ebola-affected area in the 21 days before illness onset. Initial Sepsis Screen: Does the patient meet any 2 criteria? No. Patient's initial sepsis screen is negative. Risk Assessment: Do you want to hurt yourself or someone else? Patient reports no desire to harm self or others. Onset of symptoms was May 18, 2020. 18:21 Method Of Arrival: Ambulatory ll1 18:21 Acuity: PERRY 3 ll1 19:30 Initial Sepsis Screen: Does the patient have a suspected source of infection? No. wh Patient's initial sepsis screen is negative. Historical: - Allergies: 18:23 Phenobarbital (rash); ll1 - PMHx: 18:23 Seizures; ll1 - PSHx: 18:23 Cholecystectomy; Tubal ligation; ll1 - Immunization history:: Flu vaccine is up to date. - Social history:: Smoking status: Patient denies any tobacco usage or history of. Patient/guardian denies using alcohol, street drugs, tobacco products. Screenin:44 Abuse screen: Denies threats or abuse. Denies injuries from another. Nutritional jr10 screening: No deficits noted. Tuberculosis screening: No symptoms or risk factors identified. Fall Risk None identified. Assessment: 18:39 General: Appears in no apparent distress. Behavior is calm, cooperative, appropriate jr10 for age. Pain: Complains of pain in anterior aspect of left upper chest Pain radiates to left arm Pain currently is 7 out of 10 on a pain scale. Quality of pain is described as pressure, radiating, Pain began 1 day ago. Is continuous, Alleviated by rest. Neuro: No deficits noted. 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 Gait is steady, Speech is normal, Facial symmetry appears normal, Pupils are PERRLA, Reports dizziness, since yesterday, positional Denies blurred vision. Cardiovascular: Reports chest pain, Capillary refill < 3 seconds Rhythm is regular. Respiratory: No deficits noted. Airway is patent Respiratory effort is even, unlabored, Respiratory pattern is regular, symmetrical, Breath sounds are clear bilaterally. GI: No deficits noted. Patient currently denies nausea, vomiting. : No deficits noted. EENT: No deficits noted. Derm: No deficits noted. Musculoskeletal: No deficits noted. 19:30 General: Appears in no apparent distress. Behavior is calm, cooperative, appropriate wh for age. Pain: Complains of pain in anterior aspect of left upper chest Pain radiates to left arm. Neuro: Level of Consciousness is awake, alert, obeys commands, Oriented to person, place, time, situation, Appropriate for age. Cardiovascular: Reports chest pain, Heart tones S1 S2 Capillary refill < 3 seconds Rhythm is regular. Respiratory: Airway is patent Respiratory effort is even, unlabored, Respiratory pattern is regular, symmetrical, Breath sounds are clear bilaterally. GI: Abdomen is flat, non-distended. : No signs and/or symptoms were reported regarding the genitourinary system. EENT: No signs and/or symptoms were reported regarding the EENT system. Derm: Skin is intact, is healthy with good turgor, Skin is pink, warm \T\ dry. Musculoskeletal: Circulation, motion, and sensation intact. 20:15 Reassessment: D dimer 521 called by yordy from laboratory ED provider aware. rr5 21:00 Reassessment: Patient appears in no apparent distress at this time. No changes from previously documented assessment. Patient and/or family updated on plan of care and expected duration. Pain level reassessed. Patient is alert, oriented x 3, equal unlabored respirations, skin warm/dry/pink. 22:10 Reassessment: Patient appears in no apparent distress at this time. No changes from previously documented assessment. Patient and/or family updated on plan of care and expected duration. Pain level reassessed. Patient is alert, oriented x 3, equal unlabored respirations, skin warm/dry/pink. Vital Signs: 18:21 BP 133 / 81; Pulse 77; Resp 17; Temp 98.2; Pulse Ox 97% on R/A; Weight 49.9 kg; Height ll1 5 ft. 6 in. (167.64 cm); Pain 7/10; 20:00 BP 109 / 69; Pulse 84; Resp 18; Pulse Ox 96% on R/A; wh 22:00 BP 135 / 88; Pulse 70; Resp 18; Pulse Ox 98% on R/A; wh 18:21 Body Mass Index 17.75 (49.90 kg, 167.64 cm) 1 ED Course: 18:18 Patient arrived in ED. fj1 18:23 Triage completed. ll1 18:24 Arm band placed on Patient placed in an exam room, on a stretcher. ll1 18:26 Gia Hdz, CECILY is Primary Nurse. jr10 18:34 Ry Ceja PA is PHCP. cp 18:34 Jas Sanchez MD is Attending Physician. cp 18:44 Patient has correct armband on for positive identification. Bed in low position. Call jr10 light in reach. Side rails up X2. satellite project site monitor on. Pulse ox on. NIBP on. EKG complete and shown to MD. 18:45 No provider procedures requiring assistance completed. Patient maintains SpO2 jr10 saturation greater than 95% on room air. 19:02 Inserted saline lock: 20 gauge in right forearm, using aseptic technique. IV is patent, jr10 is intact, with fluids infusing freely, with good blood return, Flushed. 19:54 Enrique Shaikh MD is Attending Physician. cp 20:07 Bassam Francis MD is Hospitalizing Provider. cp 20:11 XRAY Chest (1 view) In Process Unspecified. EDMS 20:12 Dyllan Iqbal, CECILY is Primary Nurse. rv 21:20 CT Chest For PE Angio In Process Unspecified. EDMS 22:30 Patient admitted, IV remains in place. Administered Medications: 18:51 Drug: Nitroglycerin 0.4 mg {Note: pain 7/10.} Route: Sublingual; jr10 22:00 Follow up: Response: No adverse reaction 19:01 Drug: NS 0.9% 500 ml Route: IV; Rate: 500 ml/hr; Site: right forearm; jr10 22:00 Follow up: Response: No adverse reaction; IV Status: Completed infusion 19:02 Drug: Aspirin Chewable Tablet 324 mg Route: PO; jr10 22:00 Follow up: Response: No adverse reaction 20:19 Drug: Lovenox 40 mg Route: Sub-Q; Site: abdomen; rv 22:00 Follow up: Response: No adverse reaction 21:59 Drug: Zithromax 500 mg Route: IVPB; Infused Over: 1 hrs; Site: left antecubital; 23:49 Follow up: Response: No adverse reaction; IV Status: Completed infusion Outcome: 20:07 Decision to Hospitalize by Provider. cp 22:30 Admitted to ER Hold. Please see [facility] for further documentation. 22:30 Condition: stable 22:30 Instructed on the need for admit. 05/21 01:54 Admitted to Tele accompanied by [facility], via wheelchair, room 414, with chart, Report called to Eleazar Castro RN Condition: stable Instructed on the need for admit. 02:12 Patient left the ED. rv Signatures: Dispatcher [employer] EDMS Ry Ceja PA PA Corby, Cheryl Dyllan Iqbal RN RN rv Omari House, RN RN rr5 Karthikeyan Kaye Lynsay, RN RN ll1 Gia Hdz RN RN jr10
[2020-05-20] MEDS ORDERED: ENOXAPARIN 40 MG/0.4 ML SQ ONE (20:25)
--- NOTE | 2020-05-20 21:19 | RAD REPORT ---
EXAM DESCRIPTION: Bre Single View05/20/2020 8:10 pm CLINICAL HISTORY: Chest pain COMPARISON: November 2019 FINDINGS: Mild bilateral reticulonodular opacities have overall improved since the prior exam The heart is normal size IMPRESSION: Some improvement in mild bilateral reticulonodular opacities which may indicate an atypi fernando pneumonia or aspiration pneumonitis
--- NOTE | 2020-05-20 21:33 | RAD REPORT ---
EXAM DESCRIPTION: CT - Chest For Pe Angio - 05/20/2020 9:20 pm CLINICAL HISTORY: Chest pain COMPARISON: November 2019 TECHNIQUE: Dynamically enhanced axial 3 mm thick images of the chest were obtained during administra tion of <100> mL Isovue 370 IV contrast. Coronal and oblique reconstruction images were generated and reviewed. Exam utilizes a protocol for optimal evaluation of pulmonary arterial tree. Maximum intensity projections 3D imaging was utilized All CT scans are performed using dose optimization technique as appropriate and may include automated exposure control or mA/KV adjustment according to patient size. FINDINGS: A pulmonary embolus is not seen. A thoracic aortic aneurysm is not noted. A pleural effusion is not seen. A pericardial effusion is not seen. Mild to moderate bilateral predominantly tree-in-bud opacities within the lungs IMPRESSION: Negative for a pulmonary embolism. Mild to moderate predominantly tree-in-bud opacities may indicate an atypical pneumonia or aspiration pneumonitis
[2020-05-20] MEDS ORDERED: ACETAMINOPHEN 500 MG TAB PO PRN (21:43)
[2020-05-20] MEDS ORDERED: ONDANSETRON 4 MG/2 ML VIAL IV PRN (21:43)
[2020-05-20] MEDS ORDERED: MORPHINE 4 MG/ML SYR IV PRN (21:43)
[2020-05-20] MEDS ORDERED: NA CHLORIDE 0.9% 250 ML ONE (21:54)
[2020-05-20] MEDS ORDERED: AZITHROMYCIN 500 MG INJ IVPB ONE (21:55)
[2020-05-20 22:42] VITALS: BMI 17.7
[2020-05-21 07:41] LABS: Potassium 3.5 mmol/L (3.5-5.1)
[2020-05-21 07:58] LABS: Absolute Lymphocytes (CBC) 2.2 K/uL (0.7-4.9); Basophils % 0.8 % (0-1.3); Hematocrit 40.7 % (36.0-45.0); Lymphocytes % 30.6 % (15.3-44.8); MPV 7.8 fL (7.6-11.3); RBC Red Blood Cell Count 4.94 M/uL (3.86-4.86)
[2020-05-21] MEDS ORDERED: PNEUMOCOCCAL VACCINE 0.5 ML IMVAC ONE (08:00)
[2020-05-21] MEDS: PROPRANOLOL HCL 10 MG TAB PO SCH ×2 (08:29→09:00)
[2020-05-21] MEDS ORDERED: LAMOTRIGINE 200 MG PO SCH (09:00)
[2020-05-21] MEDS ORDERED: ASPIRIN EC 81 MG TAB PO SCH (09:00)
[2020-05-21 10:44] VITALS: BP 139/79
[2020-05-21 10:53] VITALS: TEMP 97.1; O2SAT 98
--- NOTE | 2020-05-21 13:34 | CON ---
Date of Consultation: 05/21/2020 Reason For Consultation: Chest pain. History Of Present Illness: A 69-year-old female, presented to the emergency room because of lighthe adedness and chest pain started on Thursday with lightheadedness and generalized weakness. She is st ill having chest pressure in the left side and subsequently chest pressure started to moving towards the left arm and kept coming and going. Received nitroglycerin multiple times and each time she will have a good relief from it. The patient denies having any history of cardiac disease. No recent ca rdiac workup was done. Past Medical History: Seizures disorder. Medications: Refer to reconciliation sheet for detailed list. Allergies: PHENOBARBITAL. Past Surgical History: Cholecystectomy and tubal ligation. Family History: No premature coronary artery disease or cancer. Review of Systems: All systems reviewed and they were negative except for what is mentioned in the HPI. Physical Examination: Vital Signs: Temperature is 98.2, pulse 73, breathing at 18, blood pressure 121/68, saturating 98%. General: Pleasant elderly female, in no distress. Head and Neck: Pupils are equal, react to light. Intact eye movements. No JVD. No cervical lympha denopathy. Neck: Supple. Thyroid is not enlarged. Lungs: Clear to auscultation bilaterally. No rhonchi, rales, or crackles. No accessory muscle use. Heart: Regular rate and rhythm. No extra sounds. Abdomen: Soft, nontender. Bowel sounds positive. No organomegaly. No masses or hernia. No rigidi ty or rebound. Extremities: No edema, clubbing, cyanosis. Intact pulses. Skin: No rashes. Neurologic: Alert, awake, oriented x3. No acute focal deficit appreciated. Lymph Nodes: No cervical or axillary lymphadenopathy. Investigations: CTA of chest showed no PE, possible atypical pneumonia. Sodium 142, creatinine 0.75 . Troponin less than 0.02 x3. EKG without acute specific abnormalities. Assessment And Plan: Chest pain, atypical, has some risk factors including age, myocardial infarctio n was ruled out with serial sets of cardiac enzymes. Recommend aspirin 81 mg daily. Okay to dischar ge from my standpoint, if she is chest pain-free and arrange for a stress test and echo as an outpati ent. Appreciate the courtesy of this consultation. /LOVE Voice ID: [id number] Report ID: [id number]
[2020-05-21] MEDS ORDERED: ENSURE ENLIVE 237 ML CAN PO SCH (21:00)
[2020-05-21] MEDS ORDERED: PROPRANOLOL HCL 10 MG TAB PO SCH (21:00)
--- NOTE | 2020-05-22 03:34 | SS ---
Date of Discharge: 05/21/2020 Chief Complaint: Chest pain. History Of Present Illness: This is a 69-year-old female patient, who started to have chest pain in the center of the chest and left side of the chest on Thursday. She had this pain on and off on Satu . Yesterday, pain got worse, associated with some pain and tingling sensation of the left upper extremity, so she came into the emergency room. After she was evaluated in the ER, she was admitted to the hospital. She received 1 dose of nitroglycerin in the emergency room. Her pain has resolved and has not returned back since that time. Denies any fever or chills. No cough or congestion. No expectoration. No hemoptysis. Allergies: TO PHENOBARBITAL. Medications: List reviewed. Review of Systems: Cardiovascular: As mentioned above. All other systems reviewed and negative. Past Medical History: Significant for seizure disorder, COPD, hyperlipidemia, gastroesophageal reflu x disease, diverticulosis, leukocytopenia, and osteoporosis. Past Surgical History: Removal of benign breast tumor, cholecystectomy. Family History: Father , had abdominal aortic aneurysm; and mother had osteoporosis. Social History: Negative for smoking and negative for alcohol use. Physical Examination: Vital Signs: Height 5 feet 6 inches, weight 110 pounds. Temperature 97.9, pulse 72, respiratory rat e 18, blood pressure 137/69, oxygen saturation 99% on room air. General: Awake, alert, oriented, not in distress. HEENT: Head atraumatic, normocephalic. Conjunctivae nonerythematous. Sclerae white. Mouth, no thr ush or edema noted. Ears/Nose, no mass, lesion, discharge noted. Neck: Supple. No JVD, lymph nodes, bruit, thyromegaly noted. Lungs: Bilateral good equal air entry. Clear to auscultation. No rhonchi. No rales. Heart: Normal heart sounds. No murmur or gallop. Abdomen: Soft. Bowel sounds normal. No guarding, rigidity, tenderness, mass, hepatosplenomegaly, d istention, or bruit noted. Extremities: No leg edema. No calf tenderness. Skin: No rash, ulcer, cellulitis. Lymphatics: No lymph node enlargement in neck, supraclavicular, infraclavicular region. Neuro: No focal neurological deficit. Chest: Unremarkable. External Genitalia: Deferred. Rectal: Deferred. Laboratory Data: Yesterday, white count 6.6, hemoglobin 12.7, platelets 230. This morning, white co unt 7.1, hemoglobin 13.3, and a platelet count of 217. Yesterday, sodium 140, potassium 3.9, chlorid e 104, bicarb 31, BUN 12, creatinine 0.89, glucose 101. Liver function tests unremarkable. Troponin less than 0.02 x3. CAT scan of the chest done per PE protocol negative for pulmonary embolism, mild to moderate predominantly tree-in-bud opacity. Chest x-ray showing mild bilateral reticulonodular o pacity. Hospital Course: The patient was admitted to the hospital for further evaluation of right now this c hest pain problem. Her OR was ruled out by getting serial cardiac enzymes. Cardiology consultation was requested and chemical equipment sales engineer evaluated her this morning and suggested for her to have a followup at his office on outpatient basis within a week or so, and he will pursue further cardiac testing on ou tpatient basis. Medically, she is stable for discharge. She had a negative nuclear stress test and echocardiogram in January of last year when she was admitted to the hospital. I did advise her to take aspirin 81 mg p.o. daily and for her to continue her usual home medications that she was taking prio r to this admission and follow up with chemical equipment sales engineer in 1 week and follow up at my office in 2 weeks. Final Diagnoses: 1.Chest pain. 2.Seizure disorder. 3.Hyperlipidemia. 4.Diverticulosis. 5.Osteoporosis. 6.Gastroesophageal reflux disease. [place]/[facility] Voice ID: [id number] Report ID: [id number]
--- NOTE | 2020-05-22 11:06 | EKG ---
Test Date: 2020-05-20 Test Time: 18:34:56 [employer] Administrator: SULEIMAN MEASUREMENT RESULTS: Intervals: Rate: 79 WI: 216 QRSD: 86 QT: 376 QTc: 431 [place]: P: 77 WI: 216 QRS: 71 T: 73 INTERPRETIVE STATEMENTS: Sinus rhythm with 1st degree AV block Otherwise normal ECG Compared to ECG 01/27/2019 12:09:58 No significant changes Electronically Signed On 05-22-20 11:03:07 CDT by Kirby Chicas
== END 2020-05-21 13:10 | disposition home or self-care (01) ==
LOC: ER 18:16 → ERHOLD 22:11 → 4TH 05-21 01:55
PROVIDERS: ADMIT Internal Medicine; ATTEND Internal Medicine
DX: R07.89 Other chest pain (principal); G40.909 Epilepsy, unspecified, not intractable, without status epilepticus; E78.5 Hyperlipidemia, unspecified; K57.90 Diverticulosis of intestine, part unspecified, without perforation or abscess without bleeding; M81.0 Age-related osteoporosis without current pathological fracture; K21.9 Gastro-esophageal reflux disease without esophagitis; R05 Cough; Z20.828 Contact with and (suspected) exposure to other viral communicable diseases; I44.0 Atrioventricular block, first degree; J44.9 Chronic obstructive pulmonary disease, unspecified
CPT/HCPCS: 96365; 96361; 93005; 85025 ×2; 80048 ×2; 36415; 83735; 85610; 85379; 80076; 84484 ×3; 83880; 71275; 71045; 96372; 99285; 96366; U0002; Q9967; J0456; J1650; J7050; J7040; G0378 ×2

== ENCOUNTER 2021-06-27 10:20 | Emergency (ER) | payer OTHER ==
--- OUTSIDE RECORDS SUMMARY | 2021-06-27 10:24 | XMS REPORT | Continuity of Care Document ---
:1950 Author Organization [facility] t Address [address] [place] [address] Dr. Black [address] [place] [id number] Care Team Providers Name Role Phone Unavailable Unavailable Unavailable Problems This patient has no known problems. Allergies, Adverse Reactions, Alerts This patient has no known allergies or adverse reactions. Social History Social Habit Start Date Stop Date Quantity Comments Source Sex Assigned At [facility] Medications This patient has no known medications. Procedures This patient has no known procedures. Results Test Description Test Time Test Comments Results Result Comments Source SARS-COV2/RT-PCR ([facility]) 2020-05-21 15:01:00 Test Item Value Reference Range Interpretation Comme nts SARS-COV2/RT-PCR (test code = [id number]) Negative Not Detected, N egative, See external report for linked test SARS-COV-2 PERFORMING LAB (test code = [facility] [id number]) Negative results do not preclude SARS-CoV-2 infection and should not be used as the sole basis for patient management decisions. Negative results must be combined with clinical observations, patient history, and epidemiological information. A false negative result may occur if a specimen is improperly collected, transported or handled.The limit of detection for this assay is 250 copies/mL.This SARS CoV-2 test is a rapid, real-time RT-PCR test intended for the qualitative detection of nucleic acid from SARS-CoV-2 in a nasopharyngeal swab specimen collected from individuals suspected of COVID-19 by their healthcare provider.This test has not been Food and Drug Administration (FDA) cleared or approved and has been authorized by FDA under an Emergency Use Authorization (EUA). This EUA will be effective until the declaration that circumstances exist justifying the authorization of the emergency use of in vitro diagnostic tests for detection and/or diagnosis of COVID-19 is terminated under Section 564(b)(2) of the Act or the EUA is revoked under Section 564(g) of the Act.Fact Sheet for Healthcare Pro viders:https://www.Gotuit/Documents/Xpert%20Xpress%20SARS%20CoV-2/Fact%20Sh eets/3023802%52SFDS-EOY-1%20HEALTHCARE%20PROVIDERS%20FACT%20SHEET.pdfFact Sheet for Healthcare Patients:https://www.SMGBB/Documents/Xpert%20Xpress%20SARS%20CoV-2/Fact%20Sheets/3023801%20SARS-COV -2%20PATIENT%20FACT%20SHEET.pdfPerforming Laboratory:[facility] [place] [address]
[2021-06-27 11:06] LABS: Protime INR 0.95
[2021-06-27 11:07] LABS: Absolute Lymphocytes (CBC) 1.6 K/uL (0.7-4.9); Basophils % 1.1 % (0-1.3); Lymphocytes % 18.7 % (15.3-44.8); MPV 6.9 fL (7.6-11.3); RBC Red Blood Cell Count 5.07 M/uL (3.86-4.86)
[2021-06-27 11:29] LABS: ALT/SGPT 21 U/L (12-78); AST/SGOT 16 U/L (15-37); Albumin 4.3 g/dL (3.4-5.0); Alkaline Phosphatase 85 U/L (45-117); BUN Blood Urea Nitrogen 15 mg/dL (7-18); Bicarbonate 29 mmol/L (21-32); Bilirubin Direct < 0.1 mg/dL (0-0.2); Bilirubin Total 0.4 mg/dL (0.2-1.0); Glucose Level 81 mg/dL (74-106); Magnesium 2.3 mg/dL (1.8-2.4); NT PRO-BNP 84 pg/mL (<125); Potassium 4.2 mmol/L (3.5-5.1); Protein, Total 8.4 g/dL (6.4-8.2); Sodium Level 139 mmol/L (136-145); Troponin (Emerg Dept Use Only) < 0.02 ng/mL (0.0-0.045)
--- NOTE | 2021-06-27 12:20 | RAD REPORT ---
EXAM DESCRIPTION: RAD - Chest Single View - 06/27/2021 11:13 am CLINICAL HISTORY: CHEST PAIN COMPARISON: Portable May 2020 TECHNIQUE: AP portable chest image was obtained 06/27/2021 11:13 am . FINDINGS: Chronic interstitial opacification present not clearly different from comparison. No convi ncing evidence for an acute process. Lung markings in the lateral left base are slightly more pronoun brad but this may be due to artifact from rotation. Heart size is upper normal and stable. No acute vascular engorgement. Elevation of each hilum noted similar to comparison. No measurable pleural effusion and no pneumothorax. No acute bony abnormality seen. No acute aortic findings suspected. IMPRESSION: Chronic interstitial lung disease is present not clearly different from May 2020.
--- NOTE | 2021-06-27 16:09 | EDPHYS ---
Physician Documentation [facility] Name: Paola Graham Age: 70 yrs Sex: Female : 1950 Arrival Date: 06/27/2021 Time: 10:21 Bed 8 Private MD: Denise Francis C ED Physician Anderson Dawkins HPI: 06/27 11:23 This 70 yrs old Female presents to ER via Ambulatory with complaints of chest kdr discomfort, Left arm tingling. 11:23 The patient or guardian reports chest pain that is located primarily in the anterior kdr chest wall, chest diffusely. Onset: yesterday, States that yesterday afternoon she began to feel her heart beating. The pain radiates to The patient also perceives some discomfort in her left arm especially tingling in her left hand and palm of her left hand. Associated signs and symptoms: Pertinent positives: shortness of breath. Duration: The patient or guardian reports a single episode, that is still ongoing, There is very very mild. Modifying factors: The symptoms are alleviated by nothing. the symptoms are aggravated by. 06/28 08:25 Severity of pain: At its worst the pain was mild in the emergency department the pain kdr has improved moderately. The patient has not experienced similar symptoms in the past. The patient has not recently seen a physician. Patient states that she started to have some discomfort the prior day. It was very mild in severity and she felt like she could feel her heart beating. She also noted some numbness or tingling in her left arm specifically her palm of her left hand. Her symptoms overall have improved since onset but still persist. Historical: - Allergies: 06/27 10:27 Phenobarbital (rash); tw2 - Home Meds: 10:27 Boniva 150 mg Oral tab 1 tab once moly [Active]; esomeprazole magnesium 40 mg Oral cpDR tw2 1 cap once daily [Active]; Lamictal 200 mg Oral tab 1 tab once daily [Active]; propranolol 10 mg Oral tab 2 tabs twice a day [Active]; - PMHx: 10:27 Seizures; tw2 - PSHx: 10:27 Cholecystectomy; tw2 - Immunization history:: Client reports receiving the 2nd dose of the Covid vaccine. - Social history:: Smoking status: Patient denies any tobacco usage or history of. ROS: 06/28 08:25 Constitutional: Negative for fever, chills, and weight loss, Eyes: Negative for injury, kdr pain, redness, and discharge, ENT: Negative for injury, pain, and discharge, Neck: Negative for injury, pain, and swelling, Respiratory: Negative for shortness of breath, cough, wheezing, and pleuritic chest pain, Abdomen/GI: Negative for abdominal pain, nausea, vomiting, diarrhea, and constipation, Back: Negative for injury and pain, : Negative for injury, bleeding, discharge, and swelling, MS/Extremity: Negative for injury and deformity, Skin: Negative for injury, rash, and discoloration, Neuro: Negative for headache, weakness, numbness, tingling, and seizure activity. Psych: Negative for depression, anxiety, suicide ideation, homicidal ideation, and hallucinations, Allergy/Immunology: Negative for hives, rash, and allergies, Endocrine: Negative for neck swelling, polydipsia, polyuria, polyphagia, and marked weight changes, Hematologic/Lymphatic: Negative for swollen nodes, abnormal bleeding, and unusual bruising. Cardiovascular: Positive for chest pain, Negative for edema, orthopnea, palpitations, paroxysmal nocturnal dyspnea. Exam: 08:25 Constitutional: This is a well developed, well nourished patient who is awake, alert, kdr and in no acute distress. Head/Face: Normocephalic, atraumatic. Eyes: Pupils equal round and reactive to light, extra-ocular motions intact. Lids and lashes normal. Conjunctiva and sclera are non-icteric and not injected. Cornea within normal limits. Periorbital areas with no swelling, redness, or edema. Neck: Trachea midline, no thyromegaly or masses palpated, and no cervical lymphadenopathy. Supple, full range of motion without nuchal rigidity, or vertebral point tenderness. No Meningismus. Chest/axilla: Normal chest wall appearance and motion. Nontender with no deformity. No lesions are appreciated. Cardiovascular: Regular rate and rhythm with a normal S1 and S2. No gallops, murmurs, or rubs. Normal PMI, no JVD. No pulse deficits. Respiratory: Lungs have equal breath sounds bilaterally, clear to auscultation and percussion. No rales, rhonchi or wheezes noted. No increased work of breathing, no retractions or nasal flaring. Abdomen/GI: Soft, non-tender, with normal bowel sounds. No distension or tympany. No guarding or rebound. No evidence of tenderness throughout. Back: No spinal tenderness. No costovertebral tenderness. Full range of motion. Skin: Warm, dry with normal turgor. Normal color with no rashes, no lesions, and no evidence of cellulitis. MS/ Extremity: Pulses equal, no cyanosis. Neurovascular intact. Full, normal range of motion. Neuro: Awake and alert, GCS 15, oriented to person, place, time, and situation. Cranial nerves II-XII grossly intact. Motor strength 5/5 in all extremities. Sensory grossly intact. Cerebellar exam normal. Normal gait. Psych: Awake, alert, with orientation to person, place and time. Behavior, mood, and affect are within normal limits. Vital Signs: 06/27 10:28 BP 144 / 82; Pulse 138; Resp 18; Temp 97.7(TE); Pulse Ox 100% on R/A; Weight 49.9 kg tw2 (R); Height 5 ft. 6 in. (167.64 cm); 10:38 BP 139 / 70; Pulse 65; Resp 14; Pulse Ox 100% on R/A; Pain 0/10; ch5 12:18 BP 113 / 63; Pulse 63; Resp 18; Pulse Ox 99% on R/A; Pain 0/10; ch5 13:50 BP 107 / 62; Pulse 68; Resp 70; Pulse Ox 100% ; Pain 0/10; ch5 14:32 BP 113 / 67; Pulse 62; Resp 20; Pulse Ox 99% on R/A; Pain 0/10; ch5 15:43 BP 132 / 71; Pulse 65; Resp 18; Pulse Ox 99% on R/A; Pain 0/10; ch5 10:28 Body Mass Index 17.75 (49.90 kg, 167.64 cm) tw2 MDM: 12:56 Data reviewed: vital signs, nurses notes, lab test result(s), EKG, radiologic studies. kdr Counseling: I had a detailed discussion with the patient and/or guardian regarding: the historical points, exam findings, and any diagnostic results supporting the discharge/admit diagnosis, lab results, radiology results, the need for outpatient follow up. ED course: Patient continues to be stable in the emergency department. She is without pain at this time. Her initial round of laboratory work is largely negative. Will wait for second troponin. The discomfort has been ongoing since yesterday afternoon. A second troponin should confirm that her discomfort is not cardiac in nature. 16:08 Patient medically screened. [facility] 06/28 08:25 ED course: The patient symptoms completely resolved shortly after arrival. I explained kdr to her the evaluation will include a second set of cardiac enzymes. All laboratory work was negative and not suggestive of a cardiac event. I reviewed all of the labs and vital signs with the patient. Her was also present at this time. I responded to their questions and they were happy with the care provided and plan for discharge with follow-up with cardiology. 06/27 10:48 Order name: Basic Metabolic Panel [facility] 06/27 10:48 Order name: CBC with Diff 06/27 10:48 Order name: LFT's [facility] 06/27 10:48 Order name: Magnesium [facility] 06/27 10:48 Order name: NT PRO-BNP; Complete Time: 12:56 [facility] 06/27 10:48 Order name: PT-INR; Complete Time: 12:56 [facility] 06/27 10:48 Order name: Troponin (emerg Dept Use Only); Complete Time: 12:56 [facility] 06/27 10:48 Order name: XRAY Chest (1 view); Complete Time: 12:56 [facility] 06/27 10:48 Order name: Basic Metabolic Panel; Complete Time: 12:56 [facility] 06/27 10:48 Order name: CBC with Automated Diff; Complete Time: 12:56 [facility] 06/27 10:48 Order name: Liver (Hepatic) Function; Complete Time: 12:56 [facility] 06/27 10:48 Order name: Magnesium; Complete Time: 12:56 [facility] 06/27 12:50 Order name: Troponin (emerg Dept Use Only): Obtain blood sample 2 hours after the [facility] initial blood draw 06/27 12:51 Order name: Troponin (Emerg Dept Use Only); Complete Time: 14:54 [facility] 06/27 10:48 Order name: EKG; Complete Time: 10:48 [facility] 06/27 10:48 Order name: Cardiac monitoring; Complete Time: 10:48 [facility] 06/27 10:48 Order name: EKG - Nurse/Tech; Complete Time: 10:48 06/27 10:48 Order name: IV Saline Lock; Complete Time: 10:48 06/27 10:48 Order name: Labs collected and sent; Complete Time: 10:48 06/27 10:48 Order name: O2 Per Protocol; Complete Time: :54 06/27 10:48 Order name: O2 Sat Monitoring; Complete Time: 10:54 kj Administered Medications: No medications were administered Disposition Summary: 06/27/21 16:08 Discharge Ordered Location: Home kdr Problem: new kdr Symptoms: are resolved kdr Condition: Stable kdr Diagnosis - Chest pain, unspecified kdr Followup: kdr - With: Denise Francis MD - When: 2 - 3 days - Reason: If symptoms return, Further diagnostic work-up, Recheck today's complaints, Continuance of care, Re-evaluation by your physician Discharge Instructions: - Discharge Summary Sheet kdr - Nonspecific Chest Pain, Adult, [id number] kdr Forms: - Medication Reconciliation Form kdr - Thank You Letter kdr Signatures: Dispatcher [employer] Anderson Spaulding MD MD kdr Mallika Luna RN RN tw2 Erika Bates kj1
--- NOTE | 2021-06-27 16:09 | ER ---
Nurse's Notes [facility] Name: Paola Graham Age: 70 yrs Sex: Female : 1950 Arrival Date: 06/27/2021 Time: 10:21 Bed 8 Private MD: Denise Francis C Diagnosis: Chest pain, unspecified Presentation: 06/27 10:26 Chief complaint: Patient states: i am having some discomfort in my chest. started last tw2 night. i can feel the beating of my heart. then today i am having numbness and tingling in my arm. 10:26 Method Of Arrival: Ambulatory tw2 10:28 Chief complaint: Patient states: Dr. Francis is primary and when I called they told me to tw2 come here. Coronavirus screen: At this time, the client does not indicate any symptoms associated with coronavirus-19. Ebola Screen: Patient denies travel to an Ebola-affected area in the 21 days before illness onset. Initial Sepsis Screen: Does the patient meet any 2 criteria? No. Patient's initial sepsis screen is negative. Does the patient have a suspected source of infection? No. Patient's initial sepsis screen is negative. Risk Assessment: Do you want to hurt yourself or someone else? Patient reports no desire to harm self or others. Onset of symptoms was June 27, 2021. 10:28 Acuity: PERRY 2 tw2 Triage Assessment: 10:30 General: Appears in no apparent distress. slender, well groomed, Behavior is calm, tw2 cooperative, appropriate for age. Pain: Denies pain. Historical: - Allergies: 10:27 Phenobarbital (rash); tw2 - Home Meds: 10:27 Boniva 150 mg Oral tab 1 tab once moly [Active]; esomeprazole magnesium 40 mg Oral cpDR tw2 1 cap once daily [Active]; Lamictal 200 mg Oral tab 1 tab once daily [Active]; propranolol 10 mg Oral tab 2 tabs twice a day [Active]; - PMHx: 10:27 Seizures; tw2 - PSHx: 10:27 Cholecystectomy; tw2 - Immunization history:: Client reports receiving the 2nd dose of the Covid vaccine. - Social history:: Smoking status: Patient denies any tobacco usage or history of. Screenin:37 Abuse screen: Denies threats or abuse. Denies injuries from another. Nutritional ch5 screening: No deficits noted. Tuberculosis screening: No symptoms or risk factors identified. Fall Risk None identified. Assessment: 10:37 Reassessment: Patient appears in no apparent distress at this time. ch5 Vital Signs: 10:28 BP 144 / 82; Pulse 138; Resp 18; Temp 97.7(TE); Pulse Ox 100% on R/A; Weight 49.9 kg tw2 (R); Height 5 ft. 6 in. (167.64 cm); 10:38 BP 139 / 70; Pulse 65; Resp 14; Pulse Ox 100% on R/A; Pain 0/10; ch5 12:18 BP 113 / 63; Pulse 63; Resp 18; Pulse Ox 99% on R/A; Pain 0/10; ch5 13:50 BP 107 / 62; Pulse 68; Resp 70; Pulse Ox 100% ; Pain 0/10; ch5 14:32 BP 113 / 67; Pulse 62; Resp 20; Pulse Ox 99% on R/A; Pain 0/10; ch5 15:43 BP 132 / 71; Pulse 65; Resp 18; Pulse Ox 99% on R/A; Pain 0/10; ch5 10:28 Body Mass Index 17.75 (49.90 kg, 167.64 cm) tw2 ED Course: 10:21 Patient arrived in ED. am2 10:21 Anderson Dawkins MD is Attending Physician. kdr 10:21 Denise Francis MD is Private Physician. am2 10:28 Arm band placed on. tw2 10:29 Triage completed. tw2 10:36 Ronnie Bartlett, CECILY is Primary Nurse. ch5 10:37 Placed in gown. Bed in low position. Call light in reach. Side rails up X2. ch5 10:37 No provider procedures requiring assistance completed. Inserted saline lock: 20 gauge ch5 in right antecubital area, using aseptic technique. 10:44 EKG done, by ED staff, reviewed by Anderson Dawkins MD. dh3 10:54 Magnesium Sent. ch5 10:54 LFT's Sent. ch5 10:54 CBC with Diff Sent. ch5 10:54 Basic Metabolic Panel Sent. ch5 11:12 XRAY Chest (1 view) In Process Unspecified. EDMS 14:58 Troponin (emerg Dept Use Only): Obtain blood sample 2 hours after the initial blood [facility] draw Sent. 14:59 intact. 5 16:08 Denise Francis MD is Referral Physician. kdr Administered Medications: No medications were administered Outcome: 16:08 Discharge ordered by . kdr 16:22 Discharged to home ambulatory, with family. 5 16:22 Condition: improved 16:22 Discharge instructions given to patient. 16:22 Patient left the ED. 5 Signatures: Dispatcher [employer] EDMS Anderson Dawkins MD MD kdr Wise, Tara, RN RN tw2 Jennifer Hays Deanna 3 Ronnie Bartlett RN RN ch5
[2021-06-27 16:28] VITALS: TEMP 97.7
[2021-06-27 16:34] VITALS: O2SAT 99
[2021-06-27 16:35] VITALS: BP 132/71
== END 2021-06-27 16:22 | disposition home or self-care (01) ==
LOC: ER 10:20
DX: R07.9 Chest pain, unspecified (principal); R56.9 Unspecified convulsions; Z88.8 Allergy status to other drugs, medicaments and biological substances; Z90.49 Acquired absence of other specified parts of digestive tract
CPT/HCPCS: 36415; 71045; 80048; 80076; 83735; 83880; 84484; 85025; 85610; 93005; 99284

== ENCOUNTER 2022-08-27 16:20 | Observation (INO) | payer OTHER ==
--- OUTSIDE RECORDS SUMMARY | 2022-08-27 18:56 | XMS REPORT | Continuity of Care Document ---
:1950 Author Organization [facility] t Address [address] [place] [address] Care Team Providers Name Role Phone Bassam Francis Poncho Primary Care Physician [facility] MARKUS ANN Attending Clinician Unavailable SUNNI HILLS Attending Clinician Unavailable RAJNI LOPEZ Attending Clinician Unavailable Chirag Pantoja Attending Clinician Antwon Archibald Attending Clinician Sunni Hills Attending Clinician Antwon Archibald Admitting Clinician Payers Payer Name Policy Type Policy Number Effective Date Expiration Date S alconpallavi [facility] MEDICARE [id number] 2021 ADVANTAGE 00:00:00 TRS-CARE MEDICARE [id number] FOR[facility]LY [facility] ZZZPPO [id number] 2016 00:00:00 ZZZTRS-CARE [id number] MEDICARE ADVANTAGE Problems Condition Condition Condition Status Onset Resolution Last Treating Co mments Source Name Details Category Date Date Treatment Clinician Date LOCALIZATI LOCALIZAT Diagnosis Active 2017-102018-08-16 Memoria ON-RELATED ION-RELATE - 08:09:00 l (FOCAL) D (FOCAL) 00:00: Jaya medel (PARTIAL) (PARTIAL) 00 S S Active 08/06/2018 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) 00:00: of , , 00 Medicin scalp/neck scalp/neck e Milium Milium Disease Active 2012-10 [facility] 210 [facility] 00:00: of 00 Medicin e Benign Benign Disease Active 2012-10 [facility] neoplasm neoplasm 11-28 Colleg e of other of other 00:00: of specified specified 00 Medi mateo sites of sites of e skin skin Neoplasm Neoplasm Disease Active 2012-10 [facility] [facility] of 11-28 [facility] uncertain uncertain 00:00: of behavior behavior 00 Medici n of skin of skin e Memory Memory Problem Resolve 2019-06-16 Mem oria impairment impairment d 12:37:45 l (finding) (finding) John rene Resolved Problem 06/16/2019 [facility], [place] Pen[place]za Seizure Seizure Problem Resolve 2019-06-16 M emoria (finding) (finding) d 12:37:45 l Resolved [place] Problem 06/16/2019 [facility], [place] Tremor Tremor Problem Resolve 2019-06-16 Mem oria (finding) (finding) d 12:37:45 l Resolved George Problem 06/16/2019 [facility], [place] Seizure Seizure Problem Active 2019-06-16 Me moria precaution precaution 12:37:45 l s erwin Vazquez (procedure (procedure ) ) Active Problem 06/16/2019 [facility], SUSANA Vazquez, [place] History of Past Illness Condition Condition Condition Status Onset Resolution Last Treating Co mments Source Name Details Category Date Date Treatment Clinician Date Localizati Localizat Problem 2017-102019-04-11 2019-04-11 Memoria on-related ion-relate 11-26 11:42:05 11:42:05 l (focal) d (focal) 05:55: Jaya n (partial) (partial) 02 symptomati symptomati c 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, SUSANA Kee Allergies, Adverse Reactions, Alerts Allergy Allergy Status Severity Reaction(s) Onset Inactive Treating Comm ents Source Name Type Date Date Clinician Ish Gonzalez Active 2012-10 [facility] bitme ty to -10 [facility] adverse 00:00: of reaction 00 Medicin s to e drug Social History Social Habit Start Date Stop Date Quantity Comments Source Exposure to 2022-07-14 2022-07-24 Not sure [facility] SARS-CoV-2 00:00:00 13:36:00 (event) Tobacco use and 2022-01-17 2022-01-17 Smokeless tobacco [facility] exposure 00:00:00 00:00:00 non-user Alcohol intake 2021-11-13 2021-11-13 Current [facility] Col [facility]ge 00:00:00 00:00:00 non-drinker of of Medicin e alcohol (finding) [facility] [birth year] [facility] Smoking Status Start Date Stop Date Source Social History [facility] Medications Ordered Filled Start Stop Current Ordering Indication Dosage Frequency Signature Comments Components Source Medication Medication Date Date Medication? Clinician (SIG) Name Name NUTRITIONAL 2021-10- No Take by [facility] SUPPLEMENTS 0-07 10-07 mouth. Healt h PO 11:41: 00:00 31 :00 cholestyram 2021-10 Yes [facility] ine 0-07 Health (Questran) 11:37: 4 g packet 54 Multiple 2021-10 Yes 1{tbl} QD Take 1 UT Vitamin 0-07 tablet by Health (multivitam 11:37: mouth 1 in) tablet 54 (one) time each day. metoprolol 2021-10- Yes [id number] 25mg QD Take 1 UT succinate 0-07 04-06 tablet (25 Hea lth XL (Toprol 00:00: 04:59 mg total) XL) 25 MG 00 :00 by mouth 1 24 hr (one) time tablet each day. Take 1 tab at noon daily. Do not crush or chew. propranolol 2021-10- Yes [id number] 10mg Take 1 UT (Inderal) 0-07 01-06 tablet (10 Hea lth 10 MG 00:00: 05:59 mg total) tablet 00 :00 by mouth 1 (one) time each day in the morning. propranolol 2021- No [id number] TAKE 3 UT (Inderal) 8-15 10-07 TABLETS BY Hea lth 10 MG 00:00: 00:00 MOUTH tablet 00 :00 TWICE A DAY cholestyram Yes UT ine 6-27 Health (Questran) 10:12: 4 g packet 25 Multiple Yes 1{tbl} QD Take 1 UT Vitamin 6-27 tablet by Health (multivitam 10:12: mouth 1 in) tablet 25 (one) time each day. NUTRITIONAL Yes Take by UT SUPPLEMENTS 6-27 mouth. Health PO 10:12: 25 lamoTRIgine Yes [id number] 200mg Q.5D Take 1 UT (LaMICtal 6-27 tablet Health XR) 200 mg 00:00: (200 mg tablet 00 total) by sustained-r mouth in elease 24 the hour 24 hr morning tablet and 1 tablet (200 mg total) before bedtime. cholestyram Yes UT ine 4-01 Health (Questran) 11:36: 4 g packet 54 ibandronate Yes UT (Boniva) 3-27 Health 150 MG 00:00: tablet 00 ibandronate 0 Yes 150mg Q30D Take 150 U T (Boniva) 3-27 mg by Health 150 MG 00:00: mouth tablet 00 every 30 (thirty) days. ibandronate Yes 150mg Q30D Take 150 U T (Boniva) 3-27 mg by Health 150 MG 00:00: mouth tablet 00 every 30 (thirty) days. propranolol Yes 30mg Q.5D Take 30 mg UT (Inderal) 2-11 by mouth 2 Heal th 10 MG 00:00: (two) tablet 00 times a day. propranolol Yes 30mg Take 30 mg UT (Inderal) 2-11 by mouth Health 10 MG 00:00: See tablet 00 administra tion instructio ns. 3 tabs of 10 mg QAM; 2 tabs of 10 mg QPM LamoTRIgine 2021- No Take by ylor (LAMICTAL -26 11-13 mouth. [facility] XR) 50 MG 10:24: 00:00 of TB24 16 :00 Medicin e LamoTRIgine 2021- No Take by ylor (LAMICTAL 11-13 mouth. [facility] XR) 100 MG 10:24: 00:00 of TB24 13 :00 Medicin e ketoconazol Yes Apply to annette e (NIZORAL) 11-13 scalp 2-3x Co llege 2 % shampoo 00:00: per week of 00 Medicin e lamoTRIgine Yes 200mg Q.5D Take 200 U T (LaMICtal 1-18 mg by Health XR) 200 mg 00:00: mouth 2 tablet 00 (two) sustained-r times a elease 24 day. hour 24 hr tablet lamoTRIgine 2021- No 200mg Q.5D Take 200 UT (LaMICtal 1-18 06-27 mg by Health XR) 200 mg 00:00: 00:00 mouth in tablet 00 :00 the sustained-r morning elease 24 and 200 mg hour 24 hr before tablet bedtime. propranolol 2018-0 Yes PO, BID, 0 Memoria 10 mg oral 2-08 Refill(s) l tablet 18:32: George 00 Cholestyram 2018-0 Yes 4 gm, PO, M emoria ine Resin 2-08 BID, 0 l 18:32: Refill(s) George ibandronic 2018-0 Yes 150 mg = 1 M emoria acid 150 MG 2-08 tab, PO, l Oral Tablet 18:32: qMonth, 0 H ermann [Boniva] 00 Refill(s) lamotrigine 2018- Yes 200 mg = 1 Memoria 200 MG Oral 2-08 tab, PO, l Tablet 18:32: BID, 0 [place] [Lamictal] 00 Refill(s) propranolol Yes PO, BID, 0 Memoria 10 mg oral 2-08 Refill(s) l tablet 18:32: [place] 00 ibandronic Yes 150 mg = 1 M emoria acid 150 MG 2-08 tab, PO, l Oral Tablet 18:32: qMonth, 0 H ermann [Boniva] 00 Refill(s) Cholestyram Yes 4 gm, PO, M emoria ine Resin 2-08 BID, 0 l 18:32: Refill(s) George 00 lamotrigine Yes 200 mg = 1 Memoria 200 MG Oral 2-08 tab, PO, l Tablet 18:32: BID, 0 George [Lamictal] 00 Refill(s) Ibandronate Yes [id number] Take by [facility] Sodium 2-03 mouth. [facility] (BONIVA OR) 10:19: of 44 Medicin e LamoTRIgine 2012-10 Yes Take by [place] [facility] (LAMICTAL 2-10 mouth. [facility] XR) 200 MG 10:39: of TB24 28 Medicin e propranolol 2012-10 Yes 10mg Take 10 mg [facility] (INDERAL) 2-10 by mouth 3 Christina ege 10 MG 10:39: times of tablet 28 daily. Medicin e Immunizations Ordered Immunization Filled Immunization Date Status Commen ts Source Name Name Influenza Hd 2021-07-03 Completed [facility] [place] Colle ge 00:00:00 of Medicine Influenza, seasonal, 2021-06-19 Completed [facility] ealth injectable 00:00:00 Vital Signs Vital Name Observation Time Observation Value Comments Source Systolic blood 2022-07-25 17:09:00 113 mm[Hg] [facility] pressure Diastolic blood 2022-07-25 17:09:00 73 mm[Hg] [facility] pressure Heart rate 2022-07-25 17:09:00 58 /min [facility] Body height 2022-07-25 16:35:00 167.6 cm [facility] Body weight 2022-07-25 16:35:00 50.168 kg [facility] BMI 2022-07-25 16:35:00 17.85 kg/m2 [facility] Body weight 2022-04-14 15:09:00 50.349 kg [facility] BMI 2022-04-14 15:09:00 17.92 kg/m2 [facility] Oxygen saturation in 2022-04-14 15:09:00 94 /min [facility] Arterial blood by Pulse oximetry Systolic blood 2022-04-14 15:09:00 109 mm[Hg] [facility] pressure Diastolic blood 2022-04-14 15:09:00 64 mm[Hg] [facility] pressure Heart rate 2022-04-14 15:09:00 75 /min [facility] Body temperature 2022-04-14 15:09:00 34.28 Pita [facility] Body height 2022-04-14 15:09:00 167.6 cm [facility] Systolic blood 2022-01-17 16:33:00 111 mm[Hg] [facility] pressure Diastolic blood 2022-01-17 16:33:00 66 mm[Hg] [facility] pressure Heart rate 2022-01-17 16:33:00 84 /min [facility] Body temperature 2022-01-17 16:33:00 36 Pita [facility] Body height 2022-01-17 16:33:00 167.6 cm [facility] Body weight 2022-01-17 16:33:00 46.72 kg [facility] BMI 2022-01-17 16:33:00 16.62 kg/m2 [facility] Systolic (mm Hg) 2018-11-26 18:30:00 Chemo jacob George Diastolic (mm Hg) 2018-11-26 18:30:00 Mem orial [place] Heart Rate 2018-11-26 18:30:00 [facility] [place] Temperature Oral (F) 2018-11-26 18:30:00 97.9 F [facility] [place] Height 2018-11-26 18:30:00 170.18 cm [facility] [place] Weight 2018-11-26 18:30:00 [facility] [place] BMI Calculated 2018-11-26 18:30:00 Memkathy al [place] Respitory Rate 2018-08-15 12:25:00 Memori al [place] Temperature Oral (F) 2018-08-15 12:25:00 97.2 F [facility] [place] Heart Rate 2018-08-15 12:25:00 [facility] [place] Systolic (mm Hg) 2018-08-15 12:25:00 Chemo rial George Diastolic (mm Hg) 2018-08-15 12:25:00 Mem orial [place] Systolic (mm Hg) 2018-08-15 00:57:00 Chemo rial George Diastolic (mm Hg) 2018-08-15 00:57:00 Mem orial [place] Temperature Oral (F) 2018-08-15 00:57:00 97.9 F [facility] [place] Heart Rate 2018-08-15 00:57:00 [facility] [place] Diastolic (mm Hg) 2018-08-14 14:18:00 Mem orial George Systolic (mm Hg) 2018-08-14 14:18:00 Chemo rial George Heart Rate 2018-08-14 14:18:00 [facility] [place] Temperature Oral (F) 2018-08-14 14:18:00 97 F [facility] [place] Respitory Rate 2018-08-14 14:18:00 [facility] BMI Calculated 2018-08-14 14:03:00 [facility] [place] Weight 2018-08-14 14:03:00 [facility] [place] Height 2018-08-14 14:03:00 170.18 cm [facility] Procedures Procedure Date / Time Performed Performing Clinician Sour e Appendectomy [facility] Plan of Care Planned Activity Planned Date Details Comments Source Future Scheduled 2021-11-13 Screening for [facility]ge of Test 17:30:07 malignant neoplasm of Medici ne colon (procedure) [code = 983569614] Future Scheduled 2021-11-13 Screening for [facility] [place] Col [facility]ge of Test 17:30:07 malignant neoplasm of Medici ne breast (procedure) [code = 952362668] Future Scheduled 2021-11-13 COVID-19 Vaccine (1) [facility] Test 17:30:07 [code = COVID-19 Medicine Vaccine (1)] Future Scheduled 2021-11-13 TETANUS SHOT (ADULT) [facility] Test 17:30:07 [code = TETANUS SHOT Medicin e (ADULT)] Future Scheduled 2021-11-13 Hepatitis C screening [facility] 17:30:07 (procedure) [code = Medicine 767054409] Future Scheduled 2021-11-13 ZOSTER VACCINE (1 of [employer] of Test 17:30:07 2) [code = ZOSTER Medicine VACCINE (1 of 2)] Future Scheduled 2021-11-13 FALL SCREEN [code = [facility] of Test 17:30:07 FALL SCREEN] Medicine Future Scheduled 2021-11-13 Screening for [facility] [place] Col lege of Test 17:30:07 osteoporosis Medicine (procedure) [code = 915899606] Future Scheduled 2021-11-13 Pneumococcal 65+ (1 of B [facility] of Test 17:30:07 1 - PPSV23) [code = Medicine Pneumococcal 65+ (1 of 1 - PPSV23)] Future Scheduled 2021-11-13 MEDICARE AWV (Initial) B [facility] of Test 17:30:07 [code = MEDICARE AWV Medicin e (Initial)] Encounters Start End Encounter Admission Attending Care Care Encounter Source Date/Time Date/Time Type Type Clinicians Facility Department ID 2021-11-15 [facility] [id number] 2022-11-24 2022-11-24 Outpatient JEANA [facility] [id number] [place] 11:30:00 11:30:00 [facility] 2022-07-25 2022-07-25 Office TAMIR [place] 6410 [id number] [place] 11:30:00 13:30:[address] [id number] Health [id number] 2022-04-14 2022-04-14 Office TAMIR Steele 6410 [id number] [place] 10:30:00 10:52:[address] [id number] Health [id number] 2022-01-17 2022-01-17 Office TAMIR [place] 6410 [id number] [place] 11:30:00 13:01:[address] [id number] Health [id number] 2021-11-13 2021-11-13 Office BARBI LOPEZ [id number] [facility] 09:55:01 14:25:36 Visit RAJNI AMBULATOR [id number] College Y [id number] [facility] [id number] [facility] 300 e 2018-11-26 2018-11-27 Outpatient nullFlavo MNA [id number] Memoria 18:00:00 05:59:59 r Neurosurger 00 l y [facility] 2018-11-26 2018-11-27 Outpatient nullFlavo MNA [id number] Memoria 18:00:00 05:59:59 r Neurosurger 00 l y [facility] 2018-11-26 2018-11-26 Outpatient Scarlett, MHMISCHER MHMISCHER [id number] 12:00:00 23:59:59 Chirag 00 2018-11-26 2018-11-26 Outpatient Scarlett, MHMISCHER MHMISCHER [id number] 12:00:00 23:59:59 Chirag 00 2018-11-26 2018-11-26 Outpatient MHIE MHIE [id number] Memoria 12:00:00 12:00:00 00 l [place] 2018-11-01 2018-11-03 Phone nullFlavo MNA [id number] Memoria 22:28:00 05:59:59 Message r Neurosurger 01 l y [facility] 2018-11-01 2018-11-03 Phone nullFlavo MNA [id number] Memoria 22:28:00 05:59:59 Message r Neurosurger 01 l y [facility] 2018-11-01 2018-11-03 Phone nullFlavo MNA [id number] Memoria 22:18:00 05:59:59 Message r Neuroscienc 00 l e [facility] 2018-11-01 2018-11-03 Phone nullFlavo MNA [id number] Memoria 22:18:00 05:59:59 Message r Neuroscienc 00 l e [facility] 2018-11-01 2018-11-02 Outpatient MHMISCHER MHMISCHER [id number] 16:28:00 23:59:59 2018-11-01 2018-11-02 Outpatient MHMISCHER MHMISCHER [id number] 16:18:00 23:59:59 00 2018-09-21 2018-09-22 Outpt Diag nullFlavo [facility] [id number] Memoria 20:41:00 05:59:00 Services r Outpatient 01 l Imaging Roya medel [facility] 2018-09-21 2018-09-22 Outpt Diag nullFlavo [facility] [id number] Memoria 20:41:00 05:59:00 Services r Outpatient 01 l Imaging - Jaya medel [facility] 2018-09-21 2018-09-21 Outpatient [place], [id number] [id number] 14:41:00 23:59:00 [place] [facility] 2018-08-14 2018-08-15 Bedded nullFlavo [facility] [id number] Memoria 14:21:00 13:43:00 Outpatient r [place] 00 [facility] 2018-08-14 2018-08-15 Bedded nullFlavo [facility] [id number] Memoria 14:21:00 13:43:00 Outpatient r [place] 00 [facility] 2018-08-14 2018-08-15 Outpatient [place], [facility] [id number] 09:21:00 08:43:00 [place] 00 [facility] 2018-08-06 2018-08-06 Outpt Diag nullFlavo [facility] [id number] Memoria 19:30:00 19:30:00 Services r Outpatient 00 l [facility] 2018-08-06 2018-08-06 Outpt Diag nullFlavo [facility] [id number] Memoria 19:30:00 19:30:00 Services r Outpatient 00 l [facility] 2018-08-06 2018-08-06 [facility] [id number] 14:30:00 14:30:00 [place] 00 [facility] 2014-11-09 2014-11-10 Outpt Diag nullFlavo [facility] [id number] Memoria 22:25:00 05:59:00 Services r Outpatient 01 l [facility] 2014-11-09 2014-11-10 Outpt Diag nullFlavo [facility] [id number] Memoria 22:25:00 05:59:00 Services r Outpatient 01 l Imaging George Vazquez 2014-11-09 2014-11-09 Outpatient Jeana, [id number] 16:25:00 23:59:00 Sunni Isaac [id number] 01 Results Test Description Test Time Test Comments Results Result Comments Source SARS-COV2/RT-PCR ([facility]) 2020-05-21 15:01:00 Test Item Value Reference Range Interpretation Comme nts SARS-COV2/RT-PCR (test code = [id number]) Negative Not Detected, N egative, See external report for linked test SARS-COV-2 PERFORMING LAB (test code = [facility] [id number]) Negative results do not preclude SARS-CoV-2 infection [...] of the Act.Fact Sheet for Healthcare Pro viders:https://www.Scrip-t.Primeloop/Documents/Xpert%20Xpress%20SARS%20CoV-2/Fact%20Sh eets/302-9812%91OGZR-YNW-8%20HEALTHCARE%20PROVIDERS%20FACT%20SHEET.pdfFact Sheet for Healthcare Patients:https://www.Flogs.com/Documents/Xpert%20Xpress%20SARS%20CoV-2/Fact%20Sheets/302-3801%20SARS-COV -2%20PATIENT%20FACT%20SHEET.pdfPerforming Laboratory:[facility] [place] [address]
[2022-08-27 19:30] VITALS: BMI 18.1
[2022-08-27] MEDS ORDERED: ONDANSETRON 4 MG/2 ML VIAL IV PRN (19:35)
[2022-08-27] MEDS ORDERED: MORPHINE 2 MG/ML SYR IV PRN (19:35)
[2022-08-27] MEDS ORDERED: NA CHLORIDE 0.9% 1,000 ML IV SCH (20:00)
[2022-08-27 20:10] LABS: Absolute Lymphocytes (CBC) 1.8 K/uL (0.7-4.9); Hematocrit 38.9 % (36.0-45.0); Lymphocytes % 23.9 % (15.3-44.8); MCV 82.9 fL (80-100); MPV 6.8 fL (7.6-11.3)
[2022-08-27 20:21] LABS: Albumin 3.7 g/dL (3.4-5.0); Bilirubin Total 0.3 mg/dL (0.2-1.0); Magnesium 2.1 mg/dL (1.8-2.4); Potassium 3.9 mmol/L (3.5-5.1); Protein, Total 7.4 g/dL (6.4-8.2)
[2022-08-27 21:51] LABS: Specific Gravity 1.012 (1.005-1.030); Urine Bilirubin NEGATIVE (Negative); Urine Blood Negative (Negative); Urine Clarity Clear (Clear); Urine Color Colorless (Yellow); Urine Glucose NEGATIVE (Negative); Urine Protein NEGATIVE (Negative); Urine RBC <5 /HPF (None Seen); Urine Urobilinogen Normal (Normal); Urine pH 6.5 (5.0-7.0)
[2022-08-27] MEDS: lamoTRIgine 100 MG TAB PO SCH (22:02)
[2022-08-28 06:26] LABS: Magnesium 1.9 mg/dL (1.8-2.4); Potassium 3.9 mmol/L (3.5-5.1)
--- NOTE | 2022-08-28 08:04 | RAD REPORT ---
EXAM DESCRIPTION: Bre Aragon And Lat (2 Views)08/27/2022 11:31 pm CLINICAL HISTORY: Abdominal pain COMPARISON: 2020 FINDINGS: Mild reticular opacities right lung base unchanged from the prior exam Remainder lungs appear clear of acute infiltrate. The heart is normal size
--- NOTE | 2022-08-28 08:09 | HP ---
Date of Admission: 08/27/2022 Chief Complaint: Abdominal pain. History Of Present Illness: This is a 71-year-old very pleasant female patient, came into office tod allan with 2 weeks' history of right lower quadrant abdominal pain. She denies any fall or injury, no r meliton. The patient states that her pain gets worse with certain movements and she has tried taking Tyl enol without much pain relief. The pain has gotten worse lately compared to before. Her pain was in termittent to start with and lately in the last few days her pain has become more continuous pain. T here is no rash. No fever. No constipation or diarrhea. No blood in stool. No blood in urine. De nies any dysuria. The patient reported that as of this week she feels like now she has pain in her r ight thigh also. After she was evaluated, decision was made to admit her to the hospital. Allergies: TO PHENOBARBITAL CAUSING RASH. Medications: Caltrate plus D 2 times a day, cholestyramine powder 1 pack mixed with water daily, pro pranolol 10 mg 2 times a day, Lamictal 200 mg 2 times a day and Boniva once a month, vitamin D3 2000 units daily. Review of Systems: GI: As mentioned above. All other systems reviewed and negative. Past Medical History: Significant for complex partial seizure, tremor, mesial temporal sclerosis, CO PD, hyperlipidemia, gastroesophageal reflux disease, diverticulosis, leukocytopenia, and osteoporosis . Past Surgical History: Removal of benign breast tumor and cholecystectomy. Family History: Father , had abdominal aortic aneurysm. Mother had osteoporosis. Social History: Negative for smoking and alcohol use. Physical Examination: Vital Signs: Blood pressure 113/67, pulse 76, temperature 97.6, weight 112 pounds, respiratory rate 18. Height 66 inches. General: Awake, alert, oriented, not in distress. HEENT: Head atraumatic, normocephalic. Conjunctivae nonerythematous. Sclerae white. Mouth, no thr ush or edema noted. Ears/Nose, no mass, lesion, discharge noted. Neck: Supple. No JVD, lymph nodes, bruit, thyromegaly noted. Lungs: Bilateral good equal air entry. Clear to auscultation. No rhonchi. No rales. Heart: Normal heart sounds, no murmur or gallop. Abdomen: Soft. Bowel sounds normal. No guarding, no rigidity, but the patient does have moderate am ount of tenderness in the right lower quadrant. No rebound tenderness. Bowel sounds normoactive. Extremities: No leg edema. No calf tenderness. Skin: No rash, ulcer, cellulitis. Lymphatics: No lymph node enlargement in neck, supraclavicular, infraclavicular region. Neuro: No focal neurological deficit. Chest: Unremarkable. External Genitalia: Deferred. Rectal: Deferred. Laboratory Data: COVID-19 test negative. Urinalysis negative except trace leukocytes. White count 7.7, hemoglobin 12.5, platelets 252. Sodium 139, potassium 3.9, chloride 104, bicarb 30, BUN 10, cre atinine 0.80, glucose 100. Liver function tests unremarkable. Lipase 76. Impression: 1.Right lower quadrant abdominal pain. 2.Complex partial seizures. 3.Diverticulosis. 4.Gastroesophageal reflux disease. 5.Osteoporosis. Plan: Admit the patient to hospital for further evaluation and management of this problem. The papito ent is appropriate for inpatient and is expected to spend 2 midnights in hospital. We will go ahead and start her on maintenance IV fluid, start morphine and Zofran per order. Home medications will be continued per order. Chest x-ray and CAT scan of the abdomen and pelvis will be done and further pl an of treatment will depend on the results. Plan of treatment discussed with the patient. [place]/LOVE Voice ID: [id number]
[2022-08-28 08:36] VITALS: O2SAT 96
[2022-08-28 08:49] VITALS: BP 102/59; TEMP 97.8
[2022-08-28] MEDS ORDERED: POTASSIUM CL SA 10 MEQ TAB PO ONE (09:00)
[2022-08-28] MEDS ORDERED: PROPRANOLOL HCL 10 MG TAB PO SCH (09:00)
[2022-08-28] MEDS: lamoTRIgine 100 MG TAB PO SCH (10:00)
--- NOTE | 2022-08-28 10:19 | RAD REPORT ---
EXAM DESCRIPTION: CT - Abdomen Pelvis W Contrast - 08/27/2022 11:14 pm CLINICAL HISTORY: Abdominal pain. COMPARISON: 2007 TECHNIQUE: Computed axial tomography of the abdomen and pelvis was obtained. 100 cc Isovue-300 is ad ministered intravenously. Oral contrast was given. All CT scans are performed using dose optimization technique as appropriate and may include automated exposure control or mA/KV adjustment according to patient size. FINDINGS: Cholecystectomy The liver, spleen, pancreas, adrenals and kidneys appear unremarkable. The appendix is normal caliber. There is no evidence of diverticulitis No adnexal mass. Mild chronic appearing interstitial lung opacities IMPRESSION: No acute abnormality displayed
--- NOTE | 2022-08-29 01:59 | DS ---
Date of Discharge: 08/28/2022 Disposition: Discharged to go home. Physical Examination: HEENT: Unremarkable. Lungs: Clear to auscultation. Heart: Sounds normal. Abdomen: Soft. Bowel sounds normal. No guarding, rigidity, or distention. No rebound tenderness. The patient has minimal right lower quadrant tenderness, which is significantly better today than ye day. Extremities: No leg edema. Laboratory Data: White count 7.7, hemoglobin 12.5, platelets 252. Sodium 139, potassium 3.9, chlori de 104, bicarb 30, BUN 10, creatinine 0.80, glucose 100. Liver function tests unremarkable. Lipase 76. COVID-19 test negative. Chest x-ray: No acute cardiopulmonary changes. CAT scan of the abdome n and pelvis was unremarkable. Urinalysis negative. Discharge Medications And Instructions: 1.Continue all prior home medications. 2.Follow up at my office next week. 3.Follow up with Dr. Cheung in 1-2 weeks. Final Diagnoses: 1.Abdominal pain, right lower quadrant. 2.Complex partial seizure. 3.Hyperlipidemia. 4.Gastroesophageal reflux disease. 5.Diverticulosis. 6.Leukocytopenia. 7.Osteoporosis. Hospital Course: This 71-year-old pleasant female patient came into office yesterday with 2 weeks' h istory of worsening right lower quadrant abdominal pain. Please see dictated H and P for more inform ation. After patient was evaluated at office, decision was made to admit her to the hospital. Furth er workup done after admission to hospital, came back unremarkable including her blood work, urine te st, chest x-ray, and CT scan. There was no evidence of any acute appendicitis and appendix appeared normal and no evidence of any kidney problems or any colon issues. The patient was advised that she should follow up with osha inspector for colonoscopy and she will schedule her appointment with er osha inspector and I will see her next week for followup. The patient was instructed to tali nue all prior home medications. [place] Voice ID: [id number] Report ID: [id number]
== END 2022-08-28 12:13 | disposition home or self-care (01) ==
LOC: INTOOBSV 18:52 → 2ND 18:52
PROVIDERS: ADMIT Internal Medicine; ATTEND Internal Medicine
DX: R10.31 Right lower quadrant pain (principal); E78.5 Hyperlipidemia, unspecified; K21.9 Gastro-esophageal reflux disease without esophagitis; J44.9 Chronic obstructive pulmonary disease, unspecified; M81.0 Age-related osteoporosis without current pathological fracture; K57.90 Diverticulosis of intestine, part unspecified, without perforation or abscess without bleeding; D72.819 Decreased white blood cell count, unspecified; G40.209 Localization-related (focal) (partial) symptomatic epilepsy and epileptic syndromes with complex partial seizures, not intractable, without status epilepticus; Z88.8 Allergy status to other drugs, medicaments and biological substances; Z20.822 Contact with and (suspected) exposure to COVID-19
CPT/HCPCS: 85025; 81001; 36415; 83735 ×2; 84132; 83690; 80053; 74177; 71046; U0003; Q9967; J7030; G0379; G0378 ×2